=== PATIENT | female | born 1955 | race Hispanic/Latino ===

== ENCOUNTER 2017-06-11 07:19 | Outpatient (CLI) | payer MEDICARE, MEDICAID ==
--- NOTE | 2017-06-11 10:41 | RAD ---
BIPHASIC UPPER GI SMALL BOWEL SERIES: Date: 06/11/17 HISTORY: 62-year-old female with abdominal bloating. FINDINGS: Swallowing was grossly normal. There was unobstructed passage of contrast through the esophagus and i nto the stomach, small bowel loops, and finally the colon. No ulcer, stricture, mass, or diverticulum is seen. No GE reflux was demonstrated during the Valsalva maneuver. There is accelerated passage of contrast from the esophagus into the colon. The small daniella l loops are not abnormally dilated or . Spot fluoroscopic compression demonstrated no abnorm alities, including the terminal ileum. IMPRESSION: Accelerated small bowel transit time. Otherwise unremarkable exam. POS: JOSE MIGUEL
== END 2017-06-11 07:20 | disposition home or self-care (01) ==
LOC: RAD 07:19
PROVIDERS: ATTEND Family Medicine
DX: R14.0 Abdominal distension (gaseous) (principal)
CPT/HCPCS: 74249

== ENCOUNTER 2017-08-30 11:18 | Emergency (ER) | payer MEDICARE, MEDICAID ==
[2017-08-30 11:53] LABS: #Lymphocytes 1.2 thou/uL (1.20-3.40); #Neutrophils 4.5 thou/uL (1.40-6.50); %Eosinophils 0.1 % (0.0-10.0); %Lymphocytes 17.3 % (21.0-51.0); %Monocytes 14.9 % (0.0-10.0); %Neutrophils 67.7 % (42.0-75.0); Hemoglobin 14.3 g/dL (12.0-16.0); Mean Corpuscular HGB CONC 33.7 g/dL (32.0-36.0); Mean Corpuscular Hemoglobin 30.1 pg (27.0-31.0); Mean Corpuscular Volume 89.3 fl (81.0-99.0); Mean Platelet Volume 8.4 fL (7.4-10.4); Platelet Count 165 thou/uL (130-400); Red Blood Cell (RBC) Count 4.76 mill/uL (4.20-5.40); White Blood Cell (WBC) Count 6.7 thou/uL (4.8-10.8)
[2017-08-30 12:11] LABS: ALT (SGPT) 20 U/L (8-55); AST (SGOT) 35 U/L (5-34); Albumin 3.6 g/dL (3.4-4.8); Alkaline Phosphatase 67 U/L (40-150); Anion Gap 15 mmol/L (10-20); BUN (Urea Nitrogen) 17 mg/dL (9.8-20.1); Bilirubin, Total 0.7 mg/dL (0.2-1.2); CK (CPK) 354 U/L (29-168); Calc. Creatinine Clearance 0 mL/min (70-130); Calcium 8.4 mg/dL (7.8-10.44); Carbon Dioxide 21 mmol/L (23-31); Chloride 105 mmol/L (98-107); Estimated GFR-MDRD 59; Globulin 2.9 g/dL (2.4-3.5); Glucose 84 mg/dL (80-115); Potassium 4.2 mmol/L (3.5-5.1); Protein, Total 6.5 g/dL (6.0-8.3); Sodium 137 mmol/L (136-145)
[2017-08-30 12:16] LABS: CKMB 1.5 ng/mL (0-6.6); Troponin I 0.031 ng/mL (< 0.028)
--- NOTE | 2017-08-30 12:17 | RAD ---
CHEST 1 VIEW: Date: 08/30/17 HISTORY: Cough. Dyspnea. COMPARISON: 12/19/16. FINDINGS: Cardiac silhouette is magnified by projection. Pulmonary vasculature is engorged with widespread reti culonodular interstitial prominence. Mediastinum is midline with aortic calcification. IMPRESSION: 1. Widespread reticulonodular interstitial prominence may be related to pulmonary vascular congestio n. Clinical correlation regarding other signs and symptoms of diffuse pneumonitis is required. Please consider close follow-up with upright PA and lateral views of chest when patient can undergo that ex am. 2. Atherosclerosis. POS: JOSE MIGUEL
== END 2017-08-30 14:07 | disposition home or self-care (01) ==
LOC: ERS 11:18
DX: J44.1 Chronic obstructive pulmonary disease with (acute) exacerbation (principal); R19.7 Diarrhea, unspecified; I10 Essential (primary) hypertension; F17.210 Nicotine dependence, cigarettes, uncomplicated; Z79.899 Other long term (current) drug therapy
CPT/HCPCS: 71045; 80053; 82274; 82553; 83880; 84484; 85025; 87081; 87324; 87449; 93005; 94640; 99406; J7620

== ENCOUNTER 2018-01-21 07:36 | Outpatient (CLI) | payer MEDICARE, MEDICAID ==
--- NOTE | 2018-01-21 08:34 | CT ---
CT OF THE CHEST WITHOUT CONTRAST PER LOW DOSE CANCER SCREENING PROTOCOL: Date: 01/21/18 HISTORY: Current smoker with 50 pack/year smoking history. Screening encounter for malignant neoplasm. TECHNIQUE: Multiple contiguous axial images were obtained in a CT of the chest without contrast per low dose can cer screening protocol. Sagittal and coronal reformats were performed. FINDINGS: No pulmonary nodules are identified. No pneumothorax or pleural effusion seen. No focal infiltrates a re seen in the lungs. The heart is normal in size without focal cardiac abnormality. Calcifications seen in the coronary ar teries. No hilar or mediastinal lymphadenopathy are appreciated on this limited noncontrast examinati on. The visualized subdiaphragmatic structures are unremarkable. Chest wall soft tissues are unremarkable . Degenerative changes are seen in the spine. IMPRESSION: Lung-RADS Category 1 - Negative. POS: [facility]
== END 2018-01-21 07:37 | disposition home or self-care (01) ==
LOC: CT 07:36
PROVIDERS: ATTEND Family Medicine
DX: Z12.2 Encounter for screening for malignant neoplasm of respiratory organs (principal); F17.210 Nicotine dependence, cigarettes, uncomplicated
CPT/HCPCS: G0297

== ENCOUNTER 2018-02-15 09:07 | Emergency (ER) | payer MEDICARE, MEDICAID ==
[2018-02-15] MEDS ORDERED: Ketorolac Tromethamine 30 MG/ML VIAL ONE (10:38)
--- NOTE | 2018-02-15 11:06 | RAD ---
PORTABLE UPRIGHT FRONTAL CHEST RADIOGRAPH: Date: 02/15/18 COMPARISON: 08/30/17. HISTORY: Low back pain for 2 weeks. Dyspnea. FINDINGS: Lungs are clear. Heart and mediastinal contours are stable. IMPRESSION: No acute findings. POS: [facility]
[2018-02-15 11:10] LABS: #Basophils 0.1 thou/uL (0.0-0.2); #Eosinphils 0.3 thou/uL (0.0-0.7); #Lymphocytes 2.4 thou/uL (1.20-3.40); #Neutrophils 9.6 thou/uL (1.40-6.50); %Basophils 0.7 % (0.0-1.0); %Lymphocytes 17.8 % (21.0-51.0); %Monocytes 7.3 % (0.0-10.0); %Neutrophils 72.1 % (42.0-75.0); Hemoglobin 16.3 g/dL (12.0-16.0); Mean Corpuscular HGB CONC 33.3 g/dL (32.0-36.0); Mean Corpuscular Hemoglobin 29.1 pg (27.0-31.0); Mean Corpuscular Volume 87.2 fL (78.0-98.0); Mean Platelet Volume 8.5 fL (7.4-10.4); Platelet Count 222 thou/uL (130-400); RBC Distribution Width 13.3 % (11.5-14.5); Red Blood Cell (RBC) Count 5.62 mill/uL (4.20-5.40); White Blood Cell (WBC) Count 13.3 thou/uL (4.8-10.8)
[2018-02-15 11:32] LABS: CKMB 1.1 ng/mL (0-6.6); Troponin I Less than 0.010 ng/mL (< 0.028)
[2018-02-15 11:47] LABS: ALT (SGPT) 19 U/L (8-55); AST (SGOT) 23 U/L (5-34); Albumin 4.2 g/dL (3.4-4.8); Alkaline Phosphatase 100 U/L (40-150); Anion Gap 14 mmol/L (10-20); BUN (Urea Nitrogen) 14 mg/dL (9.8-20.1); Bilirubin, Total 0.9 mg/dL (0.2-1.2); CK (CPK) 61 U/L (29-168); Calc. Creatinine Clearance 0 mL/min (70-130); Calcium 9.7 mg/dL (7.8-10.44); Carbon Dioxide 26 mmol/L (23-31); Chloride 104 mmol/L (98-107); Estimated GFR-MDRD 74; Globulin 3.4 g/dL (2.4-3.5); Glucose 85 mg/dL (80-115); Lipase 23 U/L (8-78); Potassium 4.3 mmol/L (3.5-5.1); Protein, Total 7.6 g/dL (6.0-8.3); Sodium 140 mmol/L (136-145)
[2018-02-15] MEDS ORDERED: ISOVUE-370 76%-LOCM 1 ML ONE (12:15)
--- NOTE | 2018-02-15 12:25 | CT ---
CTA CHEST WITH IV CONTRAST AND 3D POSTPROCESSING CT ABDOMEN WITH IV CONTRAST AND 3D POSTPROCESSING: Date: 02/15/18 HISTORY: Chest pain, concern for aortic aneurysm and dissection. FINDINGS: Vascular calcifications are seen without evidence of aneurysmal dilatation of the thoracoabdominal ao rta. Plaque formation is noted. No intimal flap is seen in the opacified aortic lumen to suggest diss ection. There is moderate stenosis at the origin of the celiac axis, and mild stenosis at the origin of the left renal artery. There is good flow in the celiac axis, SMA, NIC, and the renal arteries. Th ere is scarring in the lung apices. No pleural or pericardial effusions are seen. There are patchy gr ound-glass infiltrates bilaterally. No free air or free fluid is seen in the abdomen. A normal appearing appendix is seen. There is colon ic diverticulosis. A tiny cyst is noted in the left renal cortex. Liver, pancreas, spleen, adrenal gl ands, and right kidney are normal. Degenerative changes are present in the thoracolumbar spine. IMPRESSION: No evidence of thoracoabdominal aortic aneurysm or dissection. POS: [facility]
== END 2018-02-15 12:49 | disposition home or self-care (01) ==
LOC: ERS 09:07
DX: S39.012A Strain of muscle, fascia and tendon of lower back, initial encounter (principal); I10 Essential (primary) hypertension; R07.9 Chest pain, unspecified; J44.9 Chronic obstructive pulmonary disease, unspecified; F17.210 Nicotine dependence, cigarettes, uncomplicated; Z79.899 Other long term (current) drug therapy; X58.XXXA Exposure to other specified factors, initial encounter
CPT/HCPCS: 71045; 71275; 80053; 82553; 83690; 83880; 84484; 85025; 85379; 93005; 96361; 96374; J1885

== ENCOUNTER 2018-02-23 22:43 | Emergency (ER) | payer MEDICARE, MEDICAID ==
[2018-02-23 23:20] LABS: #Basophils 0.1 thou/uL (0.0-0.2); #Eosinphils 0.1 thou/uL (0.0-0.7); #Lymphocytes 2.1 thou/uL (1.20-3.40); #Monocytes 0.7 thou/uL (0.11-0.59); #Neutrophils 8.6 thou/uL (1.40-6.50); %Basophils 0.8 % (0.0-1.0); %Eosinophils 0.9 % (0.0-10.0); %Lymphocytes 17.7 % (21.0-51.0); %Monocytes 6.2 % (0.0-10.0); %Neutrophils 74.3 % (42.0-75.0); Hemoglobin 16.6 g/dL (12.0-16.0); Mean Corpuscular HGB CONC 33.6 g/dL (32.0-36.0); Mean Corpuscular Hemoglobin 28.8 pg (27.0-31.0); Mean Corpuscular Volume 85.7 fL (78.0-98.0); Mean Platelet Volume 8.4 fL (7.4-10.4); Platelet Count 240 thou/uL (130-400); Red Blood Cell (RBC) Count 5.79 mill/uL (4.20-5.40); White Blood Cell (WBC) Count 11.6 thou/uL (4.8-10.8)
[2018-02-23 23:27] LABS: Bilirubin Small (Negative); Blood, Urine Negative (Negative); Clarity CLOUDY (Clear); Glucose, Urine (Dipstick) Negative (Negative); Leukocyte Trace (Negative); Nitrite Negative (Negative); Protein, Urine (Dipstick) 100 mg/dL (Neg-Trace); pH, Urine 5.5 (5.0-9.0)
[2018-02-23 23:30] LABS: Bacteria/HPF None Seen HPF (None Seen); Squamous Epithelial 21-50 HPF (0-3); Yeast-AUWi Flag 21.8 (0-25.0)
[2018-02-23 23:40] LABS: ALT (SGPT) 20 U/L (8-55); AST (SGOT) 28 U/L (5-34); Albumin 4.3 g/dL (3.4-4.8); Alkaline Phosphatase 100 U/L (40-150); Anion Gap 14 mmol/L (10-20); BUN (Urea Nitrogen) 18 mg/dL (9.8-20.1); Bilirubin, Total 0.6 mg/dL (0.2-1.2); Calc. Creatinine Clearance 0 mL/min (70-130); Calcium 9.4 mg/dL (7.8-10.44); Carbon Dioxide 24 mmol/L (23-31); Chloride 103 mmol/L (98-107); Estimated GFR-MDRD 44; Globulin 3.1 g/dL (2.4-3.5); Glucose 129 mg/dL (80-115); Lipase 43 U/L (8-78); Potassium 3.9 mmol/L (3.5-5.1); Protein, Total 7.4 g/dL (6.0-8.3); Sodium 137 mmol/L (136-145)
[2018-02-23 23:55] LABS: Crystals/HPF 3+ CA OXALATE HPF (Negative); RBC/HPF None Seen HPF (0-3); Renal Epithelial None Seen HPF (0-3); Transitional Epithelial NONE SEEN HPF (0-3)
[2018-02-24] MEDS ORDERED: Ketorolac Tromethamine 30 MG/ML VIAL ONE (02:32)
[2018-02-24] MEDS ORDERED: Ondansetron ODT 8 MG TAB ONE (02:32)
[2018-02-24] MEDS ORDERED: Fentanyl 100 MCG/2 ML VIAL ONE (04:10)
[2018-02-24] MEDS ORDERED: Lidocaine Viscous Sol 2% 15 ml UD Cup ONE (04:10)
[2018-02-24] MEDS ORDERED: Mag-Al 1200 mg/1200 mg/30 ML UDCUP ONE (04:10)
== END 2018-02-24 05:03 | disposition home or self-care (01) ==
LOC: ERS 22:43
DX: K29.70 Gastritis, unspecified, without bleeding (principal); Z71.6 Tobacco abuse counseling; J44.9 Chronic obstructive pulmonary disease, unspecified; I10 Essential (primary) hypertension; J45.909 Unspecified asthma, uncomplicated; F17.210 Nicotine dependence, cigarettes, uncomplicated; Z79.899 Other long term (current) drug therapy
CPT/HCPCS: 36415; 80053; 81003; 81015; 83690; 85025; 93005; 96361; 96372; 96374; 96375; 99406; J1885; J3010

== ENCOUNTER 2018-03-27 12:55 | Outpatient (CLI) | payer MEDICARE, MEDICAID | END 2018-03-27 12:56 | disposition home or self-care (01) | LOC: BICRAD 12:55 | PROVIDERS: ATTEND Nurse Practitioner Family | DX: Z91.81 History of falling (principal) | CPT/HCPCS: 72220 ==

== ENCOUNTER 2018-06-03 14:02 | Outpatient (CLI) | payer MEDICARE, MEDICAID | END 2018-06-03 14:03 | disposition home or self-care (01) | LOC: BICMAMMO 14:02 | PROVIDERS: ATTEND Nurse Practitioner Family | DX: Z12.31 Encounter for screening mammogram for malignant neoplasm of breast (principal) | CPT/HCPCS: 77063; 77067 ==

== ENCOUNTER 2018-08-27 13:30 | Emergency (ER) | payer MEDICARE, MEDICAID ==
--- NOTE | 2018-08-27 15:28 | RAD ---
PORTABLE CHEST ONE VIEW: Date: 08-27-18 Time: 2:13 p.m. History: Cough. FINDINGS: Comparison is made with exam of 02-15-18. The heart size is prominent. The lungs are expanded without focal areas of consolidation, pneumothora x, jerald pulmonary edema or pleural effusions. IMPRESSION: No acute process. POS: OFF
[2018-08-27 15:31] LABS: Bilirubin Negative (Negative); Blood, Urine Negative (Negative); Clarity CLEAR (Clear); Glucose, Urine (Dipstick) Negative (Negative); Leukocyte Negative (Negative); Nitrite Negative (Negative); Protein, Urine (Dipstick) Negative (Neg-Trace); Specific Gravity, Urine 1.019 (1.002-1.036); pH, Urine 6.5 (5.0-9.0)
[2018-08-27 15:31] LABS: #Basophils 0.1 thou/uL (0.0-0.2); #Eosinphils 0.3 thou/uL (0.0-0.7); #Lymphocytes 2.4 thou/uL (1.20-3.40); #Monocytes 0.9 thou/uL (0.11-0.59); #Neutrophils 7.4 thou/uL (1.40-6.50); %Basophils 0.7 % (0.0-1.0); %Eosinophils 2.9 % (0.0-10.0); %Lymphocytes 21.3 % (21.0-51.0); %Monocytes 7.9 % (0.0-10.0); %Neutrophils 67.1 % (42.0-75.0); Hemoglobin 15.1 g/dL (12.0-16.0); Mean Corpuscular HGB CONC 31.9 g/dL (32.0-36.0); Mean Corpuscular Hemoglobin 28.6 pg (27.0-31.0); Mean Corpuscular Volume 89.5 fL (78.0-98.0); Mean Platelet Volume 8.2 fL (7.4-10.4); Platelet Count 254 thou/uL (130-400); RBC Distribution Width 12.9 % (11.5-14.5); Red Blood Cell (RBC) Count 5.27 mill/uL (4.20-5.40)
[2018-08-27 15:52] LABS: ALT (SGPT) 18 U/L (8-55); AST (SGOT) 24 U/L (5-34); Alkaline Phosphatase 119 U/L (40-150); Anion Gap 16 mmol/L (10-20); BUN (Urea Nitrogen) 16 mg/dL (9.8-20.1); Bilirubin, Total 0.5 mg/dL (0.2-1.2); CK (CPK) 65 U/L (29-168); Calc. Creatinine Clearance 0 mL/min (70-130); Calcium 9.5 mg/dL (7.8-10.44); Carbon Dioxide 23 mmol/L (23-31); Chloride 107 mmol/L (98-107); Estimated GFR-MDRD 66; Globulin 2.6 g/dL (2.4-3.5); Glucose 114 mg/dL (80-115); Lipase 24 U/L (8-78); Potassium 4.3 mmol/L (3.5-5.1); Protein, Total 6.6 g/dL (6.0-8.3); Sodium 142 mmol/L (136-145)
== END 2018-08-27 16:45 | disposition home or self-care (01) ==
LOC: ERS 13:30
DX: M54.5 Low back pain (principal); R07.9 Chest pain, unspecified; R06.00 Dyspnea, unspecified; J44.9 Chronic obstructive pulmonary disease, unspecified; I10 Essential (primary) hypertension; F17.210 Nicotine dependence, cigarettes, uncomplicated; Z79.51 Long term (current) use of inhaled steroids; Z79.891 Long term (current) use of opiate analgesic; Z79.899 Other long term (current) drug therapy
CPT/HCPCS: 36415; 71045; 80053; 81003; 82550; 83690; 83880; 84484; 85025; 93005

== ENCOUNTER 2018-12-18 05:52 | Emergency (ER) | payer MEDICARE, MEDICAID ==
--- NOTE | 2018-12-18 07:28 | RAD ---
EXAM: Chest 2 views: HISTORY: Dyspnea COMPARISON: 12/19/2016 FINDINGS: There is a normal-sized cardiomediastinal silhouette. There is no evidence of consolidation, mass, or pleural effusion. Degenerative changes are seen in the spine. IMPRESSION: No evidence of acute cardiopulmonary disease
== END 2018-12-18 06:52 | disposition home or self-care (01) ==
LOC: ERS 05:52
DX: J44.1 Chronic obstructive pulmonary disease with (acute) exacerbation (principal); J02.9 Acute pharyngitis, unspecified; I10 Essential (primary) hypertension; F17.210 Nicotine dependence, cigarettes, uncomplicated; Z79.51 Long term (current) use of inhaled steroids; Z79.899 Other long term (current) drug therapy
CPT/HCPCS: 71046

== ENCOUNTER 2019-04-03 10:02 | Inpatient (IN) | payer MEDICARE, MEDICAID ==
--- NOTE | 2019-04-03 10:40 | RAD ---
XR Chest Pa Lat STANDARD HISTORY: Dyspnea, COPD COMPARISON: 12/18/2018 FINDINGS: The heart size is normal. The lungs are well expanded without focal areas of consolidation, pneumothorax or pleural effusions. There are degenerative changes in the spine. IMPRESSION: No radiographic evidence of acute cardiopulmonary process.
[2019-04-03 12:22] LABS: #Basophils 0.1 thou/uL (0.0-0.2); #Eosinphils 0.2 thou/uL (0.0-0.7); #Lymphocytes 2.4 thou/uL (1.20-3.40); #Monocytes 0.7 thou/uL (0.11-0.59); #Neutrophils 6.9 thou/uL (1.40-6.50); %Basophils 0.8 % (0.0-1.0); %Eosinophils 2.2 % (0.0-10.0); %Lymphocytes 23.4 % (21.0-51.0); %Monocytes 6.3 % (0.0-10.0); %Neutrophils 67.2 % (42.0-75.0); Hemoglobin 15.9 g/dL (12.0-16.0); Mean Corpuscular HGB CONC 33.5 g/dL (32.0-36.0); Mean Corpuscular Hemoglobin 28.9 pg (27.0-31.0); Mean Corpuscular Volume 86.3 fL (78.0-98.0); Mean Platelet Volume 8.4 fL (7.4-10.4); Platelet Count 233 thou/uL (130-400); RBC Distribution Width 12.6 % (11.5-14.5); Red Blood Cell (RBC) Count 5.49 mill/uL (4.20-5.40); White Blood Cell (WBC) Count 10.3 thou/uL (4.8-10.8)
[2019-04-03 12:42] LABS: ALT (SGPT) 28 U/L (8-55); AST (SGOT) 38 U/L (5-34); Albumin 4.3 g/dL (3.4-4.8); Alkaline Phosphatase 95 U/L (40-150); Anion Gap 13 mmol/L (10-20); BUN (Urea Nitrogen) 15 mg/dL (9.8-20.1); CK (CPK) 48 U/L (29-168); Calc. Creatinine Clearance 0 mL/min (70-130); Calcium 9.6 mg/dL (7.8-10.44); Carbon Dioxide 25 mmol/L (23-31); Chloride 104 mmol/L (98-107); Estimated GFR-MDRD 74; Globulin 2.4 g/dL (2.4-3.5); Glucose 107 mg/dL (80-115); Potassium 4.5 mmol/L (3.5-5.1); Protein, Total 6.7 g/dL (6.0-8.3); Sodium 137 mmol/L (136-145)
[2019-04-03 14:18] LABS: Bilirubin Negative (Negative); Blood, Urine Negative (Negative); Clarity Clear (Clear); Glucose, Urine (Dipstick) Normal (Negative); Leukocyte Negative Leu/uL (Negative); Nitrite Negative (Negative); Protein, Urine (Dipstick) Negative (Neg-Trace); Urobilinogen Normal mg/dL (Less than 2)
--- NOTE | 2019-04-03 14:31 | CT ---
CT arteriogram chest with IV contrast and 3-D imaging HISTORY: Chest pain. Productive cough. COMPARISON: 11/28/2015. FINDINGS: There is good contrast opacification pulmonary arteries and thoracic aorta with bovine orig ins of the great vessels at the aortic arch. Arterial calcification and prominent noncalcified thrombus, most pronounced within the descending thoracic aorta, resulting in significant stenosis mehul r the level of the diaphragm. Areas of chronic scarring throughout each lung and tiny nonspecific subpleural nodules are stable. No pleural fluid or pneumothorax. Nonspecific lymph nodes throughout the mediastinum. IMPRESSION: No CT evidence of pulmonary embolus. Severe atherosclerosis. Chronic-type findings are stable.
[2019-04-03] MEDS ORDERED: methylPREDNISolone Sod Succ/PF 125 MG/2 ML VIAL ONE (15:35)
[2019-04-03] MEDS ORDERED: Magnesium 2 GM/50 ML BAG (IN WATER) ONE (16:12)
[2019-04-03] MEDS ORDERED: HYDROcodone/Acetaminophen 5/325 mg Tablet PO PRN ×2 (17:44)
[2019-04-03 19:58] VITALS: BMI 47.2
[2019-04-03] MEDS: methylPREDNISolone Sod Succ 40 MG VIAL IVP SCH (21:46)
[2019-04-03] MEDS: Famotidine 20 MG TAB PO SCH (21:48)
[2019-04-03] MEDS: Nicotine 14 MG PATCH TD SCH (21:50)
[2019-04-03] MEDS: Senokot S 8.6-50 MG TAB PO SCH (21:51)
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
[2019-04-04] MEDS: methylPREDNISolone Sod Succ 40 MG VIAL IVP SCH ×2 (00:50→06:37)
[2019-04-04 04:58] LABS: #Lymphocytes 0.8 thou/uL (1.20-3.40); #Monocytes 0.1 thou/uL (0.11-0.59); #Neutrophils 9.6 thou/uL (1.40-6.50); %Basophils 0.1 % (0.0-1.0); %Eosinophils 0.1 % (0.0-10.0); %Lymphocytes 7.5 % (21.0-51.0); %Monocytes 1.4 % (0.0-10.0); Hemoglobin 15.4 g/dL (12.0-16.0); Mean Corpuscular HGB CONC 32.9 g/dL (32.0-36.0); Mean Corpuscular Hemoglobin 29.2 pg (27.0-31.0); Mean Corpuscular Volume 88.8 fL (78.0-98.0); Mean Platelet Volume 8.4 fL (7.4-10.4); Platelet Count 235 thou/uL (130-400); RBC Distribution Width 12.6 % (11.5-14.5); Red Blood Cell (RBC) Count 5.27 mill/uL (4.20-5.40); White Blood Cell (WBC) Count 10.6 thou/uL (4.8-10.8)
[2019-04-04 05:14] LABS: Anion Gap 21 mmol/L (10-20); BUN (Urea Nitrogen) 21 mg/dL (9.8-20.1); Calc. Creatinine Clearance 86 mL/min (70-130); Calcium 9.2 mg/dL (7.8-10.44); Carbon Dioxide 14 mmol/L (23-31); Chloride 99 mmol/L (98-107); Estimated GFR-MDRD 50; Glucose 331 mg/dL (80-115); Magnesium 2.3 mg/dL (1.6-2.6); Potassium 3.7 mmol/L (3.5-5.1); Sodium 130 mmol/L (136-145)
[2019-04-04] MEDS: Famotidine 20 MG TAB PO SCH ×2 (07:40→21:59)
[2019-04-04] MEDS: Enoxaparin Sodium 40 MG/0.4 ML SYRINGE SC SCH (07:40)
[2019-04-04] MEDS: Senokot S 8.6-50 MG TAB PO SCH ×2 (07:40→21:58)
[2019-04-04] MEDS ORDERED: cloNIDine 0.1 MG TAB PO PRN (08:41)
[2019-04-04] MEDS ORDERED: predniSONE 20 MG TAB PO SCH (11:00)
--- NOTE | 2019-04-04 17:00 | PDOC.HOSPP ---
- Subjective Subjective: Still SOB. Does not feel like she has any improvement from the time of admission. - Objective Vital Signs & Weight: Vital Signs (12 hours) Temp Pulse Pulse Pulse Resp BP BP 04/04/19 15:44 98.1 F 107 H 16 04/04/19 11:40 97.3 F L 115 H 22 H 148/70 H 04/04/19 10:35 120 H 127 H 136/66 04/04/19 07:37 97.4 F L 116 H 24 H BP Pulse Ox Pulse Ox Pulse Ox 04/04/19 15:44 131/66 95 04/04/19 11:40 97 04/04/19 10:35 97 95 04/04/19 07:37 198/76 H 97 Weight Admit Weight 233 lb 11.2 oz Weight 233 lb 11.2 oz I&O: 04/03/19 04/04/19 04/05/19 06:59 06:59 06:59 Intake Total 650 Output Total 700 Balance -50 Result Diagrams: 04/04/19 04:41 04/04/19 04:41 Hospitalist ROS - Medication Medications: Active Medications Generic Name Dose Route Start Last Admin Trade Name Freq PRN Reason Stop Dose Admin Hydrocodone Bitart/Acetaminophen 1 tab 04/03/19 17:44 04/04/19 13:37 [place] 5/325 PO 1 tab Q4H PRN Administration Moderate Pain (4-6) Hydrocodone Bitart/Acetaminophen 2 tab 04/03/19 17:44 04/03/19 21:48 [place] 5/325 PO 2 tab Q4H PRN Administration Severe Pain (7-10) Albuterol/Ipratropium 3 ml 04/04/19 13:00 04/04/19 12:47 Duoneb NEB Not Given [id number] ANYA Enoxaparin Sodium 40 mg 04/04/19 09:00 04/04/19 07:40 Lovenox SC 40 mg 0900 ANYA Administration Famotidine 20 mg 04/03/19 21:00 04/04/19 07:40 Pepcid PO 20 mg BID ANYA Administration Nicotine 14 mg 04/03/19 21:00 04/03/19 21:50 Nicoderm Patch TD 14 mg 2100 ANYA Administration Senna/Docusate Sodium 2 tab 04/03/19 21:00 04/04/19 07:40 Senokot S PO Not Given BID ANYA Sodium Chloride 10 ml 04/03/19 17:44 04/04/19 06:38 Flush - Normal Saline IVF 10 ml PRN PRN Administration Saline Flush - Exam General Appearance: NAD Neck: supple, symmetric, no JVD, no thyromegaly, no lymphadenopathy, no carotid bruit Heart: RRR, no murmur, no gallops, no rubs, normal peripheral pulses Respiratory - other findings: Modest scattered wheezes and rales. Diminished. Gastrointestinal: soft, non-tender, non-distended, normal bowel sounds, no palpable masses, no hepatomegaly, no splenomegaly, no bruit Extremities: 1+ LE edema (Left LE) Musculoskeletal: normal tone, normal strength, no muscle wasting Psychiatric: normal affect Hosp A/P (1) Tachycardia Code(s): R00.0 - TACHYCARDIA, UNSPECIFIED Status: Acute (2) COPD exacerbation Code(s): J44.1 - CHRONIC OBSTRUCTIVE PULMONARY DISEASE W (ACUTE) EXACERBATION Status: Acute (3) Leg swelling Code(s): M79.89 - OTHER SPECIFIED SOFT TISSUE DISORDERS Status: Acute (4) HTN (hypertension) Code(s): I10 - ESSENTIAL (PRIMARY) HYPERTENSION Status: Chronic Qualifiers: (5) Tobacco abuse Code(s): Z72.0 - TOBACCO USE Status: Chronic (6) Morbid obesity Code(s): E66.01 - MORBID (SEVERE) OBESITY DUE TO EXCESS CALORIES Status: Acute (7) Atherosclerosis of aorta Code(s): I70.0 - ATHEROSCLEROSIS OF AORTA Status: Acute - Plan Has persistent tachycardia. Unclear if it is related to the nebs or the COPD. Suspect COPD as it has been consistent. Will change nebs to q 6 hours. Change steroids to po. FLP in am. Start a statin. Recheck BUN and Creat in the morning. Slightly up today. Discussed the findings of the severe atherosclerotic disease of the distal aorta. Strongly admonished the patient to stop smoking completely.
[2019-04-04] MEDS ORDERED: Atorvastatin Calcium 10 MG TAB PO SCH (21:00)
[2019-04-04] MEDS: Nicotine 14 MG PATCH TD SCH (21:59)
[2019-04-05 06:48] LABS: Anion Gap 13 mmol/L (10-20); BUN (Urea Nitrogen) 28 mg/dL (9.8-20.1); Calc. Creatinine Clearance 100 mL/min (70-130); Calcium 9.5 mg/dL (7.8-10.44); Carbon Dioxide 26 mmol/L (23-31); Cardiac Risk 4.2 (Less than 4.5); Chloride 100 mmol/L (98-107); Cholesterol 152 mg/dl (< 200 Desired); Estimated GFR-MDRD 59; Glucose 177 mg/dL (80-115); HDL Cholesterol 36 mg/dL (>60 Neg Risk); LDL Cholesterol, Calculated 91 mg/dL; Potassium 4.5 mmol/L (3.5-5.1); Sodium 134 mmol/L (136-145); Triglycerides 127 mg/dL (Less than 150)
[2019-04-05] MEDS ORDERED: predniSONE 20 MG TAB PO SCH (08:00)
[2019-04-05] MEDS: Senokot S 8.6-50 MG TAB PO SCH (08:26)
[2019-04-05] MEDS: Enoxaparin Sodium 40 MG/0.4 ML SYRINGE SC SCH (08:26)
[2019-04-05] MEDS: Famotidine 20 MG TAB PO SCH (08:26)
--- NOTE | 2019-04-05 11:56 | DIS ---
DATE OF ADMISSION: 04/04/2019 DATE OF DISCHARGE: 04/05/2019 ADMITTING DIAGNOSES: Dyspnea, chronic obstructive pulmonary disease exacerbation, hypertension, and shortness of breath upon ambulation. DISCHARGE DIAGNOSES: 1. Dyspnea, resolved. 2. Chronic obstructive pulmonary disease exacerbation, stable. 3. Hypertension, stable. 4. Obesity. HOSPITAL COURSE: This is a 63-year-old female, who was admitted to Internal Medicine Team due to shortness of breath and COPD exacerbation, who was started on steroids with significant improvement in her condition. The patient at point in time of discharge was stable. Denied having any nausea, vomiting, diarrhea, constipation, chest pain, fevers, or shortness of breath. Was advised to follow up with her outpatient beauty specialist within 1 to 2 weeks for further management and care as well as her PCP within 1 to 2 weeks. The patient's condition is stable. The patient was given Medrol Dosepak at point in time of discharge. Also advised to pursue some weight loss. The patient at point in time was stable. Case and plan discussed with the patient, , and family at length. They understood and agreed with this plan. DISPOSITION: Home. MEDICATIONS: See MAR. ACTIVITY: As tolerated with assistance as needed. DIET: Low-fat, low-calorie, high-fiber diet. CONDITION: Stable. PROGNOSIS: Good. Once again, case and plan discussed with patient at length. They understood and agreed with this plan. Job ID: [id number]
[2019-04-05 11:57] VITALS: BP 139/62; TEMP 98.6
== END 2019-04-05 14:32 | disposition home or self-care (01) | DRG 191 ==
LOC: ERS 10:02 → 2SW 16:10 → OBSVTOIN 04-04 10:48
PROVIDERS: ADMIT Internal Medicine; ATTEND Internal Medicine
DX: J44.1 Chronic obstructive pulmonary disease with (acute) exacerbation (principal); Z68.42 Body mass index [BMI] 45.0-49.9, adult; F17.210 Nicotine dependence, cigarettes, uncomplicated; I10 Essential (primary) hypertension; E66.01 Morbid (severe) obesity due to excess calories; I70.0 Atherosclerosis of aorta; Z90.49 Acquired absence of other specified parts of digestive tract; Z79.51 Long term (current) use of inhaled steroids
CPT/HCPCS: 36415; 71046; 71275; 80048; 80053; 80061; 81003; 82550; 83605; 83735; 83880; 84484; 85025; 87040; 87324; 87449; 93005; 93306; 94640; 96365; 96366; 96375; J1650; J2920; J2930; J3475; J7512; J7620

== ENCOUNTER 2019-09-04 15:45 | Outpatient (CLI) | payer MEDICARE, MEDICAID ==
--- NOTE | 2019-09-04 16:49 | RAD ---
EXAM: LUMBAR SPINE TWO VIEWS: 09/04/19 HISTORY: Lumbago with sciatica. Right sided pain. COMPARISON: 09/16/09. FINDINGS: Grade I/II spondylolisthesis of L5 on S1. Multilevel disc osteophytosis. Significant facet arthrosis of the lower lumbar spine. Appearance does not appear to be significantly changed from prior exam. IMPRESSION: Grade I/II spondylolisthesis of L5 on S1. Generalized spondylosis. No acute fracture or dislocation. Little change from prior exam. POS: OFF
== END 2019-09-04 15:46 | disposition home or self-care (01) ==
LOC: BICRAD 15:45
PROVIDERS: ATTEND Family Medicine
DX: M54.41 Lumbago with sciatica, right side (principal); M43.17 Spondylolisthesis, lumbosacral region; M47.816 Spondylosis without myelopathy or radiculopathy, lumbar region
CPT/HCPCS: 72100

== ENCOUNTER 2019-10-03 11:19 | Outpatient (CLI) | payer MEDICARE, MEDICAID ==
--- NOTE | 2019-10-03 13:23 | MMO ---
Bilateral MAMMO Bilat Screen DDI+ANTOINE. CLINICAL HISTORY: Patient is 64 years old and is seen for screening. The patient has no family history of breast cancer. The patient has no personal history of cancer. VIEWS: The views performed were: bilateral craniocaudal; bilateral craniocaudal with tomosynthesis; bilateral mediolateral oblique; and bilateral mediolateral oblique with tomosynthesis. FILMS COMPARED: The present examination has been compared to prior imaging studies performed at [facility] on 01/19/2009, 05/31/2017 and 06/03/2018. This study has been interpreted with the assistance of computer-aided detection. MAMMOGRAM FINDINGS: The breasts are almost entirely fat. Benign calcifications are noted bilaterally. There are no suspicious masses, suspicious calcifications, or new areas of architectural distortion. IMPRESSION: THERE IS NO MAMMOGRAPHIC EVIDENCE OF MALIGNANCY. A ROUTINE FOLLOW-UP MAMMOGRAM IN 1 YEAR IS RECOMMENDED. THE RESULTS OF THIS EXAM WERE SENT TO THE PATIENT. ACR BI-RADS Category 2 - Benign finding MAMMOGRAPHY NOTE: 1. A negative mammogram report should not delay a biopsy if a dominant of clinically suspicious mass is present. 2. Approximately 10% to 15% of breast cancers are not detected by mammography. 3. Adenosis and dense breasts may obscure an underlying neoplasm. Reported by: VIVI MARIA MD Electonically Signed: [id number]
== END 2019-10-03 11:20 | disposition home or self-care (01) ==
LOC: BICMAMMO 11:19
PROVIDERS: ATTEND Family Medicine
DX: Z12.31 Encounter for screening mammogram for malignant neoplasm of breast (principal)
CPT/HCPCS: 77063; 77067

== ENCOUNTER 2019-10-07 08:00 | Outpatient (CLI) | payer MEDICARE, MEDICAID ==
--- NOTE | 2019-10-07 09:22 | BD ---
DEXA BONE DENSITY STUDY: Date: 10/07/2019 HISTORY: Menopausal disorder. COMPARISON: None. FINDINGS: Lumbar Spine: BMD (g/cm2) L1 0.892 T-Score: -0.9 Z-Score: 0.7 L2 0.920 T-Score: -1.0 Z-Score: 0.8 L3 0.980 T-Score: -0.9 Z-Score: 0.9 L4 1.138 T-Score: 0.7 Z-Score: 2.6 L1-L4 0.976 T-Score: -0.6 Z-Score: 1.1 Left Femoral Neck: 0.700 T-Score: -1.3 Z-Score: 0.2 Total Femur: 1.081 T-Score: 1.1 Z-Score: 2.4 IMPRESSION: 1. Based on WHO criteria, the patient's bone mineral density is considered osteopenic. The patient i s at moderate risk for fracture. 2. The FRAX WHO fracture risk assessment tool estimates 10 year fracture risk for this patient for m ajor osteoporotic fracture at 11% and for hip fracture at 1.1%. POS: OFF
== END 2019-10-07 08:01 | disposition home or self-care (01) ==
LOC: BICMAMMO 08:00
PROVIDERS: ATTEND Family Medicine
DX: N95.9 Unspecified menopausal and perimenopausal disorder (principal); M85.852 Other specified disorders of bone density and structure, left thigh
CPT/HCPCS: 77080

== ENCOUNTER 2019-10-13 06:52 | Outpatient (CLI) | payer MEDICARE, MEDICAID ==
[2019-10-13 13:22] LABS: #Basophils 0.1 thou/uL (0.0-0.2); #Lymphocytes 0.9 thou/uL (1.20-3.40); #Monocytes 0.3 thou/uL (0.11-0.59); #Neutrophils 11.7 thou/uL (1.40-6.50); %Basophils 0.8 % (0.0-1.0); %Eosinophils 0.1 % (0.0-10.0); %Lymphocytes 6.8 % (21.0-51.0); %Neutrophils 90.2 % (42.0-75.0); Hemoglobin 15.2 g/dL (12.0-16.0); Mean Corpuscular HGB CONC 33.2 g/dL (32.0-36.0); Mean Corpuscular Hemoglobin 28.9 pg (27.0-31.0); Mean Corpuscular Volume 87.3 fL (78.0-98.0); Mean Platelet Volume 8.6 fL (7.4-10.4); Platelet Count 234 thou/uL (130-400); RBC Distribution Width 12.8 % (11.5-14.5); Red Blood Cell (RBC) Count 5.26 mill/uL (4.20-5.40)
[2019-10-13 13:49] LABS: Anion Gap 15 mmol/L (10-20); BUN (Urea Nitrogen) 15 mg/dL (9.8-20.1); Calc. Creatinine Clearance 0 mL/min (70-130); Calcium 8.6 mg/dL (7.8-10.44); Carbon Dioxide 22 mmol/L (23-31); Chloride 106 mmol/L (98-107); Estimated GFR-MDRD 65; Glucose 205 mg/dL (80-115); Potassium 4.2 mmol/L (3.5-5.1); Sodium 139 mmol/L (136-145)
== END 2019-10-13 06:53 | disposition home or self-care (01) ==
LOC: LABBT 06:52
PROVIDERS: ATTEND Orthopaedic Surgery
DX: Z01.812 Encounter for preprocedural laboratory examination (principal); G56.02 Carpal tunnel syndrome, left upper limb; G56.22 Lesion of ulnar nerve, left upper limb
CPT/HCPCS: 80048; 85025; 93005; 93010

== ENCOUNTER → 2019-10-15 | Day surgery (SDC) | payer MEDICARE, MEDICAID ==
[2019-10-13 13:25] VITALS: BMI 50.2
[~2019-10-15] MED LIST: Fentanyl 100 MCG/2 ML VIAL ONE; Glycopyrrolate 0.2 MG/ML 5 ML SYRINGE ONE; Labetalol HCl 100 MG/20 ML VIAL ONE; Lidocaine 1% (PF) 30 ML VIAL ONE; Lidocaine 1% PF 5 ML VIAL ONE; Ondansetron PF 4 MG/2 ML Vial ONE; PROPOFOL 200 MG/20 ML VIAL ONE; Rocuronium Bromide 10 MG/ML (10ML VIAL) ONE; Succinylcholine Chloride 20 MG/ML 10 ml SYRINGE FS ONE
--- NOTE | 2019-10-18 09:16 | OP ---
DATE OF PROCEDURE: 10/15/2019 PREOPERATIVE DIAGNOSES: 1. Recurrent left carpal tunnel syndrome. 2. Left cubital tunnel syndrome. PROCEDURES PERFORMED: 1. Left open carpal tunnel release. 2. Left open cubital tunnel release with ulnar nerve transposition. 3. Placement of long-arm splint, left upper extremity. VIDEO EDITOR: Morgan Hill PA-C ESTIMATED BLOOD LOSS: Minimal. COMPLICATIONS: None. DISPOSITION: She did go to recovery room in stable condition. ANESTHESIA: She had a general anesthetic. INDICATIONS: A 64-year-old female, who had a previous carpal tunnel release performed. A recent EMG/NCV has significant cubital and carpal tunnel syndromes. At this time, she opted for surgery. DESCRIPTION OF PROCEDURE: After all appropriate consent forms were explained and signed, she was taken to the operating room and at this time was given general anesthetic. Once the level of anesthesia was appropriate, the left upper extremity had a tourniquet placed on it. The limb was then prepped and draped in standard surgical fashion. At this time, our incision for carpal tunnel release was drawn out. This went to proximal to the crease in a zigzag fashion. This was infiltrated with plain lidocaine. The limb was then exsanguinated. Tourniquet was taken up to 250 mmHg. Under loupe magnification, a 15 blade was used to make the incision. Bipolar cautery was used to coagulate any brisk venous bleeding. We then very slowly and down through the previous incision of scar tissue to get to the carpal tunnel. Using a hemostat to protect the underlying nerve, a combination of scissors and a 15 blade was used to transect the transverse carpal ligament in its entirety and to reopen the wound. There was a copious amount of scar tissue distally, from which the nerve was freed up and after this was done, the nerve appeared to be intact. There were no masses noted. The underlying flexor tendons were in good condition. At this time, a moist Ray-Tania sponge was placed into the wound and the tourniquet was let down. Hemostasis was achieved with the bipolar. We thoroughly irrigated the wound. We then closed the wound with multiple interrupted nylon sutures. A bulky sterile hand dressing was applied. At this time, we went to the elbow. The incision was drawn out. The arm was re-exsanguinated and tourniquet was taken back up to 250 mmHg. A 15 blade was used to incise down through skin. The Bovie was used to coagulate any brisk venous bleeding as well as the bipolar. At this time, we then freed up the flexor origin from any tissue. We then used the scissors to cut into the cubital tunnel and keeping the nerve in direct visualization. We were able to free up the ulnar nerve in its entirety from the brachium all the way down to the first motor branch. At this time again, a moist Ray-Tania sponge was placed into the wound and the tourniquet was let down again. Bipolar cautery was used to coagulate any brisk venous bleeding. We thoroughly irrigated and dried the wounds. We then used deep Vicryl sutures to close our cubital tunnels so the nerve cannot rollback inside. 2-0 Vicryl and nylon scissors were then used to close the skin incision. Bulky sterile dressing was then applied here and a long-arm posterior splint was then placed onto the left upper extremity. Once it was dried a sling was applied. The patient was then awakened and taken to the recovery room in stable condition. All counts were correct at the end of the case and she did receive preop antibiotics. An examination was performed on the recovery room once the patient had awakened and both the median and ulnar nerves were functioning in the recovery room. Job ID: [id number]
== END ==
LOC: SDC 08:11
PROVIDERS: ATTEND Orthopaedic Surgery
PROC: 01N40ZZ Release Ulnar Nerve, Open Approach (ICD-10-PCS; principal; 2019-10-15)
PROC: 01N50ZZ Release Median Nerve, Open Approach (ICD-10-PCS; 2019-10-15)
DX: G56.03 Carpal tunnel syndrome, bilateral upper limbs (principal); G56.22 Lesion of ulnar nerve, left upper limb; I10 Essential (primary) hypertension; J44.9 Chronic obstructive pulmonary disease, unspecified; K21.9 Gastro-esophageal reflux disease without esophagitis; F17.210 Nicotine dependence, cigarettes, uncomplicated; E66.9 Obesity, unspecified; Z68.43 Body mass index [BMI] 50.0-59.9, adult; Z79.51 Long term (current) use of inhaled steroids; Z79.899 Other long term (current) drug therapy; Z96.652 Presence of left artificial knee joint; Z98.890 Other specified postprocedural states
CPT/HCPCS: J0690; J2001; J2405; J2704; J3010

== ENCOUNTER 2020-02-09 05:24 | Outpatient (CLI) | payer MEDICARE, MEDICAID, OTHER ==
[2020-02-10 13:10] LABS: SARS-CoV-2 MS2 Positive; SARS-CoV-2 N Gene Negative; SARS-CoV-2 S Gene Negative; SARS-CoV-2 orf1ab Negative
== END 2020-02-09 05:25 | disposition home or self-care (01) ==
LOC: LABBT 05:24
PROVIDERS: ATTEND Internal Medicine
DX: Z01.812 Encounter for preprocedural laboratory examination (principal); Z11.59 Encounter for screening for other viral diseases; Z12.11 Encounter for screening for malignant neoplasm of colon
CPT/HCPCS: 87635; U0003

== ENCOUNTER 2020-02-12 05:52 | Day surgery (SDC) | payer MEDICARE, MEDICAID ==
[2020-02-04 11:23] VITALS: BMI 46.8
[2020-02-12] MEDS ORDERED: GoLYTELY 4,000 ml Bottle PO SCH (08:30)
[2020-02-12] MEDS ORDERED: PROPOFOL 200 MG/20 ML VIAL ONE (11:28)
[2020-02-12] MEDS ORDERED: Lidocaine 1% PF 5 ML VIAL ONE (11:28)
--- NOTE | 2020-02-12 13:29 | OP ---
DATE OF PROCEDURE: 02/12/2020 PROCEDURE PERFORMED: Colonoscopy with polypectomy. INDICATIONS FOR PROCEDURE: Screening for malignant neoplasm of the colon, no stated family history of GI malignancy. DESCRIPTION OF PROCEDURE: After the risks and benefits of the procedure were explained to the patient including risks of bleeding, infection, perforation, reactions to anesthesia, aspiration and/or pain, informed consent was obtained. The patient was then taken to the endoscopy suite where she was maneuvered into the left lateral decubitus position followed by introduction of deep sedation via propofol and anesthesia support. Once adequate sedation was achieved, a digital rectal examination was performed followed by introduction of the standard colonoscope, which was then advanced to the terminal ileum without difficulty and with the findings listed below. The quality of the prep was good with a small amount of retained stool that was easily suctioned. The patient tolerated the procedure well with no immediate perioperative complications. On conclusion of the procedure, all equipment was removed from the patient and she was transferred to Day Stay in satisfactory condition. FINDINGS: Digital rectal exam: Normal findings were seen on digital rectal examination. However, there were some minimal excoriations of the skin in the perianal area, consistent with scratching. Colon findings: Normal-appearing mucosa was seen in the terminal ileum as well as at the ileocecal valve and appendiceal orifice. A 3- to 4-mm polyp was seen in the cecum and completely removed with cold snare polypectomy. It was retrieved and placed in a specimen jar for further evaluation. Scattered diverticula were seen throughout the entire colon, that were small to medium in size and located in the ascending, transverse, descending, and sigmoid colons. Otherwise, normal-appearing mucosa was seen in the ascending, transverse, descending, and sigmoid colon and rectum. Normal findings were seen on rectal retroflexion. IMPRESSION: 1. A 3- to 4-mm cecal polyp status post cold snare polypectomy. 2. [id number] pancolonic diverticulosis without diverticulitis. 3. Mild excoriation of the perianal skin, most likely due to wiping and/or scratching. RECOMMENDATIONS: 1. We will follow up on the polyp results with repeat colonoscopy depending on pathology report. If adenomatous, I would recommend a repeat colonoscopy in 5 years based on the lack of family history of colon polyps/cancer. 2. Continue current diet. 3. Continue current medications. 4. Would have the patient follow up in the GI Clinic as needed. Job ID: [id number]
== END 2020-02-12 14:35 | disposition home or self-care (01) ==
LOC: SDC 05:52 → EEVIPCON 08:00 → SDC 14:35
PROVIDERS: ATTEND Internal Medicine
PROC: 0DBH8ZX Excision of Cecum, Via Natural or Artificial Opening Endoscopic, Diagnostic (ICD-10-PCS; principal; 2020-02-12)
DX: Z12.11 Encounter for screening for malignant neoplasm of colon (principal); D12.0 Benign neoplasm of cecum; K57.30 Diverticulosis of large intestine without perforation or abscess without bleeding; S30.817A Abrasion of anus, initial encounter; I10 Essential (primary) hypertension; K21.9 Gastro-esophageal reflux disease without esophagitis; F17.210 Nicotine dependence, cigarettes, uncomplicated; J44.9 Chronic obstructive pulmonary disease, unspecified; G47.30 Sleep apnea, unspecified; Z79.82 Long term (current) use of aspirin; Z79.899 Other long term (current) drug therapy; X58.XXXA Exposure to other specified factors, initial encounter
CPT/HCPCS: 88305; J2704

== ENCOUNTER 2020-04-02 11:01 | Emergency (ER) | payer MEDICARE, MEDICAID ==
[2020-04-02 12:08] LABS: #Basophils 0.1 thou/uL (0.0-0.2); #Eosinphils 0.1 thou/uL (0.0-0.7); #Lymphocytes 1.4 thou/uL (1.20-3.40); #Monocytes 0.7 thou/uL (0.11-0.59); #Neutrophils 6.6 thou/uL (1.40-6.50); %Basophils 1.2 % (0.0-1.0); %Eosinophils 1.1 % (0.0-10.0); %Lymphocytes 15.7 % (21.0-51.0); %Monocytes 7.4 % (0.0-10.0); %Neutrophils 74.6 % (42.0-75.0); Hemoglobin 15.4 g/dL (12.0-16.0); Mean Corpuscular HGB CONC 33.3 g/dL (32.0-36.0); Mean Corpuscular Hemoglobin 29.2 pg (27.0-31.0); Mean Corpuscular Volume 87.8 fL (78.0-98.0); Mean Platelet Volume 9.2 fL (7.4-10.4); Platelet Count 214 thou/uL (130-400); RBC Distribution Width 12.6 % (11.5-14.5); Red Blood Cell (RBC) Count 5.26 mill/uL (4.20-5.40); White Blood Cell (WBC) Count 8.8 thou/uL (4.8-10.8)
[2020-04-02 12:11] LABS: Bilirubin Negative (Negative); Blood, Urine Negative (Negative); Clarity Clear (Clear); Glucose, Urine (Dipstick) 30 mg/dL (Negative); Ketone, Urine Negative (Negative); Leukocyte Negative Leu/uL (Negative); Nitrite Negative (Negative); Protein, Urine (Dipstick) 20 mg/dL (Neg-Trace); Specific Gravity, Urine 1.021 (1.002-1.036); Urobilinogen Normal mg/dL (Less than 2)
[2020-04-02 12:15] LABS: ALT (SGPT) 36 U/L (8-55); AST (SGOT) 41 U/L (5-34); Albumin 3.8 g/dL (3.4-4.8); Alkaline Phosphatase 109 U/L (40-110); Anion Gap 14 mmol/L (10-20); BUN (Urea Nitrogen) 13 mg/dL (9.8-20.1); Bilirubin, Total 0.5 mg/dL (0.2-1.2); Calc. Creatinine Clearance 0 mL/min (70-130); Calcium 8.7 mg/dL (7.8-10.44); Carbon Dioxide 22 mmol/L (23-31); Chloride 104 mmol/L (98-107); Estimated GFR-MDRD 63; Globulin 3.1 g/dL (2.4-3.5); Glucose 279 mg/dL (80-115); Potassium 3.5 mmol/L (3.5-5.1); Protein, Total 6.9 g/dL (6.0-8.3); Sodium 136 mmol/L (136-145)
[2020-04-02] MEDS ORDERED: Ketorolac Tromethamine 30 MG/ML VIAL ONE (12:24)
[2020-04-02] MEDS ORDERED: Dexamethasone 4 mg/ml Vial ONE (12:24)
--- NOTE | 2020-04-02 12:27 | CT ---
LUMBAR SPINE CT WITHOUT CONTRAST: Date: 04/02/2020 HISTORY: Low back pain for a few weeks, bilateral lower extremity radiculopathy. TECHNIQUE: Axial CT imaging obtained at 2.5 mm intervals through the lumbar spine without contrast. Coronal and sagittal reformatted imaging obtained. FINDINGS: There is scattered multifocal atherosclerotic calcification involving the abdominal aorta and its bra nches, not optimally assessed on this examination. There is mild anterolisthesis at L4-5 measuring 6.0 mm. Evaluation for central canal and/or neural foraminal stenosis is limited on routine CT exam. T12-L1: No osseous cause of significant central canal or neural foraminal stenosis. L1-2: Small central posterior osteophyte. Mild anterior osteophytosis. No osseous cause of significa nt central canal or neural foraminal stenosis. L2-3: Bilateral facet hypertrophy and hypertrophy of ligamentum flavum with mild disc bulge noted. M ild central canal stenosis and mild bilateral neural foraminal stenosis suspected. L3-4: There is bilateral facet hypertrophy and hypertrophy of the ligamentum flavum. Mild disc bulge suspected with at least mild central canal stenosis. Moderate bilateral neural foraminal stenosis is suspected, right greater than left. L4-5: Prominent bilateral facet hypertrophy. Mild/moderate bilateral neural foraminal stenosis. No o sseous cause of significant central canal stenosis. L5-S1: Prominent bilateral facet hypertrophy, right greater than left. Osteophyte encroachment on th e right neural foramen causes severe central canal stenosis and there is at least moderate left neura l foraminal stenosis. No osseous cause of significant central canal stenosis. There is degenerative change involving bilateral sacroiliac joints. No acute fracture or dislocation. No worrisome lytic or blastic bone lesion. Partially visualized sigmoid diverticulosis present. IMPRESSION: Multilevel degenerative change within the lumbar spine as detailed above. POS: [facility]
--- NOTE | 2020-04-02 13:58 | CT ---
CTA CHEST WITH CONTRAST: Axial tomograms were obtained with multiplanar reconstruction and 3D postprocessing. INDICATION: Cough and shortness of breath. FINDINGS: The pulmonary arteries show adequate enhancement. No evidence of pulmonary embolus identified. There are atherosclerotic changes seen in the thoracic aorta. There is ectasia of the descending tho racic aorta with luminal irregularity and peripheral calcification. The lungs are clear. There is no evidence of infiltrate or consolidation. There is mild vascular co ngestion and cardiomegaly. Some hazy ground-glass opacity may represent mild interstitial edema. Th ere is no confluent alveolar edema or consolidation. No significant effusion. Images through the upper abdomen unremarkable. Degenerative spine changes are prominent. IMPRESSION: 1. No evidence of pulmonary embolus. 2. Prominent atherosclerotic changes in the thoracic aorta with ectasia of the descending thoracic a lissy, peripheral thrombus, and luminal irregularity, and mild luminal narrowing. 3. Cardiomegaly and mild vascular congestion. No focal alveolar consolidation or infiltrate. Some hazy ground-glass opacity is seen as discussed above. POS: [facility]
[2020-04-02] MEDS ORDERED: Morphine 4 MG/ML VIAL ONE (14:09)
--- NOTE | 2020-04-02 15:45 | ULT ---
: Abdominal aortic ultrasound HISTORY: Back pain. COMPARISON: none TECHNIQUE: Grayscale, color flow, Doppler imaging and spectral waveform analysis the aorta FINDINGS: Visualized aorta has a normal caliber. Proximal aorta measures 2.2 cm, mid aorta measures 1 .8 cm, distal aorta measures 1.3 cm Left and right aortic bifurcation approximately 1.5 cm IMPRESSION: No evidence of aneurysm in the visualized aorta. Body habitus does limit evaluation.
== END 2020-04-02 17:25 | disposition home or self-care (01) ==
LOC: ERS 11:01
DX: M54.5 Low back pain (principal); I10 Essential (primary) hypertension; J44.9 Chronic obstructive pulmonary disease, unspecified; F17.200 Nicotine dependence, unspecified, uncomplicated; Z79.51 Long term (current) use of inhaled steroids; Z79.899 Other long term (current) drug therapy
CPT/HCPCS: 51701; 71275; 72131; 76775; 80053; 81003; 84443; 84484; 85025; 85379; 87086; 93005; 96361; 96374; 96375; J1100; J1885; J2270

== ENCOUNTER 2020-04-18 16:22 | Emergency (ER) | payer MEDICARE, MEDICAID ==
[~2020-04-18 16:22] MED LIST changes: -Fentanyl 100 MCG/2 ML VIAL ONE; -Glycopyrrolate 0.2 MG/ML 5 ML SYRINGE ONE; +Iopamidol-370 76% 500 ML 1 ML ONE; -Labetalol HCl 100 MG/20 ML VIAL ONE; -Lidocaine 1% (PF) 30 ML VIAL ONE; -Lidocaine 1% PF 5 ML VIAL ONE; -Ondansetron PF 4 MG/2 ML Vial ONE; -PROPOFOL 200 MG/20 ML VIAL ONE; -Rocuronium Bromide 10 MG/ML (10ML VIAL) ONE; -Succinylcholine Chloride 20 MG/ML 10 ml SYRINGE FS ONE
[2020-04-18 17:51] LABS: #Basophils 0.1 thou/uL (0.0-0.2); #Eosinphils 0.1 thou/uL (0.0-0.7); #Lymphocytes 1.9 thou/uL (1.20-3.40); #Neutrophils 10.4 thou/uL (1.40-6.50); %Basophils 0.6 % (0.0-1.0); %Lymphocytes 13.7 % (21.0-51.0); %Neutrophils 77.6 % (42.0-75.0); Hemoglobin 15.4 g/dL (12.0-16.0); Mean Corpuscular HGB CONC 33.3 g/dL (32.0-36.0); Mean Corpuscular Hemoglobin 29.5 pg (27.0-31.0); Mean Corpuscular Volume 88.6 fL (78.0-98.0); Mean Platelet Volume 8.9 fL (7.4-10.4); Platelet Count 218 thou/uL (130-400); RBC Distribution Width 13.1 % (11.5-14.5); Red Blood Cell (RBC) Count 5.21 mill/uL (4.20-5.40); White Blood Cell (WBC) Count 13.4 thou/uL (4.8-10.8)
--- NOTE | 2020-04-18 17:57 | RAD ---
Exam: Chest one view HISTORY:Shortness of breath. Comparison: 08/27/2018 FINDINGS: Cardiac silhouette: Normal Aorta: Atherosclerosis Pulmonary vessels: Normal Costophrenic angles: Clear LUNGS: No masses or consolidation. Pneumothorax: None Osseous abnormalities: None IMPRESSION: No acute cardiopulmonary process.
[2020-04-18 18:14] LABS: ALT (SGPT) 29 U/L (8-55); AST (SGOT) 28 U/L (5-34); Albumin 3.8 g/dL (3.4-4.8); Alkaline Phosphatase 111 U/L (40-110); Anion Gap 16 mmol/L (10-20); BUN (Urea Nitrogen) 14 mg/dL (9.8-20.1); Bilirubin, Total 1.2 mg/dL (0.2-1.2); Calc. Creatinine Clearance 0 mL/min (70-130); Calcium 8.9 mg/dL (7.8-10.44); Carbon Dioxide 26 mmol/L (23-31); Chloride 101 mmol/L (98-107); Estimated GFR-MDRD 51; Glucose 226 mg/dL (80-115); Potassium 3.6 mmol/L (3.5-5.1); Protein, Total 6.8 g/dL (6.0-8.3); Sodium 139 mmol/L (136-145)
--- NOTE | 2020-04-18 19:37 | CT ---
Exam: CT angiogram of the chest HISTORY: Evaluate for pulmonary arterial system. Elevated d-dimer. Shortness of breath. Hypertension and pain. COMPARISON: 04/02/2020 TECHNIQUE: CT angiogram of the chest is performed in the axial plane. Three-dimensional reformatted i mages are submitted for interpretation FINDINGS: Mediastinum: Redemonstration of enlarged mesenteric lymph nodes. No mass. There is an enlarged subcar inal lymph node measuring 2.0 x 1.4 cm. HEART: Normal size. No significant pericardial fluid. Aorta: There is extensive atherosclerotic disease involving the aortic arch, descending thoracic aort a and upper abdominal aorta. There is short segment moderate luminal narrowing predominantly due to noncalcified plaque in the mid to distal descending thoracic aorta and upper abdominal aorta. The deg ree of atherosclerotic disease is similar to the previous examination. Note, there is evidence of scattered coronary disease. Upper solid abdominal viscera: No acute abnormality. There do appear to be splenic varices. Trachea and central bronchi: Patent Pleural spaces: No effusion Lung parenchyma: Scattered groundglass opacities. No masses or consolidation Pneumothorax: None Osseous structures: No lytic or blastic lesions Pulmonary arteries:Limited evaluation the pulmonary arterial system due to timing of contrast bolus. Adequate contrast opacification of the pulmonary arterial system to the level of the lobar arteries. No filling defect to suggest thromboembolism. IMPRESSION: 1. No evidence of pulmonary artery embolism to the level of the segmental arteries. 2. Nonspecific enlarged subcarinal lymph node, unchanged. 3. Persistent nonspecific groundglass opacities. Correlate for edema or infiltrate. 4. Stable extensive atherosclerosis of the visualized aorta. 5. Splenic varices. Transcribed Date/Time: 04/18/2020 7:42 PM
[2020-04-18] MEDS ORDERED: methylPREDNISolone Sod Succ/PF 125 MG/2 ML VIAL ONE (20:00)
[2020-04-18] MEDS ORDERED: Albuterol Sulfate 2.5 mg/3 ml Neb ONE ×3 (20:43→21:53)
== END 2020-04-18 22:15 | disposition home or self-care (01) ==
LOC: ERS 16:22
DX: J44.1 Chronic obstructive pulmonary disease with (acute) exacerbation (principal); E11.65 Type 2 diabetes mellitus with hyperglycemia; R00.0 Tachycardia, unspecified; I10 Essential (primary) hypertension; F17.210 Nicotine dependence, cigarettes, uncomplicated
CPT/HCPCS: 36415; 71045; 71275; 80053; 83880; 84484; 85025; 85379; 93005; 94640; 96374; J2930; J7611; J7620; Q9967

== ENCOUNTER 2020-04-19 16:51 | Observation (INO) | payer MEDICARE, MEDICAID, OTHER ==
[2020-04-19] MEDS ORDERED: Albuterol 200 PUFF (6.7GM INHALER) ONE (17:47)
[2020-04-19] MEDS ORDERED: Dexamethasone 10 MG/ML VIAL ONE (17:47)
[2020-04-19 17:59] LABS: #Lymphocytes 0.8 thou/uL (1.20-3.40); #Monocytes 0.5 thou/uL (0.11-0.59); #Neutrophils 14.8 thou/uL (1.40-6.50); %Basophils 0.1 % (0.0-1.0); %Eosinophils 0.1 % (0.0-10.0); %Lymphocytes 4.7 % (21.0-51.0); %Monocytes 2.8 % (0.0-10.0); %Neutrophils 92.4 % (42.0-75.0); Hemoglobin 14.4 g/dL (12.0-16.0); Mean Corpuscular HGB CONC 31.8 g/dL (32.0-36.0); Mean Corpuscular Hemoglobin 28.3 pg (27.0-31.0); Mean Corpuscular Volume 89.1 fL (78.0-98.0); Platelet Count 230 thou/uL (130-400); RBC Distribution Width 13.3 % (11.5-14.5)
--- NOTE | 2020-04-19 18:04 | RAD ---
PORTABLE CHEST: Date: 04-19-2020 Time: 5:44 p.m. History: Shortness of breath, dizziness. Comparison: Previous day FINDINGS: The heart size is normal. The aorta is tortuous. No lobar consolidation, pneumothoraces, jerald pulmon desiree edema, or pleural effusions are seen. IMPRESSION: No acute process. POS: [facility]
[2020-04-19 18:16] LABS: ALT (SGPT) 26 U/L (8-55); AST (SGOT) 16 U/L (5-34); Albumin 3.7 g/dL (3.4-4.8); Alkaline Phosphatase 125 U/L (40-110); Anion Gap 19 mmol/L (10-20); BUN (Urea Nitrogen) 21 mg/dL (9.8-20.1); Bilirubin, Total 0.7 mg/dL (0.2-1.2); CK (CPK) 120 U/L (29-168); Calc. Creatinine Clearance 0 mL/min (70-130); Calcium 8.7 mg/dL (7.8-10.44); Carbon Dioxide 18 mmol/L (23-31); Chloride 99 mmol/L (98-107); Estimated GFR-MDRD 40; Globulin 2.5 g/dL (2.4-3.5); Potassium 4.1 mmol/L (3.5-5.1); Protein, Total 6.2 g/dL (6.0-8.3); Sodium 132 mmol/L (136-145)
[2020-04-19 18:20] LABS: Glucose 619 mg/dL (80-115)
[2020-04-19] MEDS ORDERED: Insulin Regular 300 UNITS/3 ML VIAL ONE (18:26)
[2020-04-19] MEDS ORDERED: Aspirin 325 MG TAB ONE (18:26)
--- NOTE | 2020-04-19 19:26 | ULT ---
Left lower extremity venous Doppler ultrasound: 04/19/2020 COMPARISON: None HISTORY: Pain, swelling, edema, assess for DVT TECHNIQUE: Multiplanar grayscale sonographic imaging of the venous structures of the left lower extre mity obtained with color flow and spectral analysis FINDINGS: Left common femoral vein, greater saphenous vein, profunda femoral vein, femoral vein, popl iteal vein, and posterior tibial vein are patent. Normal blood flow, augmentation, and compression within the deep venous system on the left. No evidence for deep venous thrombosis. IMPRESSION: No evidence for deep venous thrombosis of the left lower extremity.
[2020-04-19] MEDS ORDERED: Metoprolol Tartrate 5 MG/5 ML VIAL IVP PRN (21:34)
[2020-04-19] MEDS ORDERED: Dextrose 50% Abboject 50 ML SYRINGE SLOW IVP PRN (21:35)
[2020-04-19] MEDS ORDERED: HumaLOG 300 UNITS/3 ML VIAL SC PRN ×2 (21:35→23:45)
[2020-04-19] MEDS ORDERED: Dextrose 5% in Water 1,000 ML IV PRN (21:35)
[2020-04-19] MEDS ORDERED: Guaifenesin DM 100-10/5 ML UDCUP PO PRN (21:36)
[2020-04-19] MEDS ORDERED: Bacteriostatic Water 30 ML VIAL FS PRN (21:40)
[2020-04-19] MEDS ORDERED: methylPREDNISolone Sod Succ 40 MG VIAL IVP SCH (22:00)
[2020-04-19] MEDS: methylPREDNISolone Sod Succ/PF 125 MG/2 ML VIAL IVP SCH (23:29)
[2020-04-19 23:42] LABS: Troponin I Less than 0.010 ng/mL (< 0.028)
[2020-04-19 23:56] VITALS: BMI 48.1
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
[2020-04-20 03:42] LABS: Hemoglobin A1c 8.1 % (4.0-6.0)
[2020-04-20 03:54] LABS: Anion Gap 15 mmol/L (10-20); BUN (Urea Nitrogen) 21 mg/dL (9.8-20.1); Calc. Creatinine Clearance 81 mL/min (70-130); Calcium 8.6 mg/dL (7.8-10.44); Carbon Dioxide 22 mmol/L (23-31); Chloride 101 mmol/L (98-107); Estimated GFR-MDRD 48; Glucose 468 mg/dL (80-115); Potassium 4.3 mmol/L (3.5-5.1); Sodium 134 mmol/L (136-145)
[2020-04-20 04:00] LABS: Band 8 % (5-11); Hemoglobin 13.2 g/dL (12.0-16.0); Lymphocytes 1 % (21-51); MDiff Complete? YES; Mean Corpuscular HGB CONC 31.3 g/dL (32.0-36.0); Mean Corpuscular Volume 89.7 fL (78.0-98.0); Mean Platelet Volume 9.4 fL (7.4-10.4); Monocytes 1 % (0-10); Platelet Count 184 thou/uL (130-400); RBC Distribution Width 13.4 % (11.5-14.5); Red Blood Cell (RBC) Count 4.72 mill/uL (4.20-5.40); White Blood Cell (WBC) Count 14.2 thou/uL (4.8-10.8)
[2020-04-20] MEDS ORDERED: Acetaminophen 325 MG TAB PO PRN (06:01)
[2020-04-20] MEDS: methylPREDNISolone Sod Succ/PF 125 MG/2 ML VIAL IVP SCH (06:05)
[2020-04-20] MEDS ORDERED: Acetaminophen 500 MG TAB PO PRN (07:56)
[2020-04-20] MEDS ORDERED: HumaLOG 300 UNITS/3 ML VIAL SC PRN (07:57)
[2020-04-20] MEDS ORDERED: Dextrose 50% Abboject 50 ML SYRINGE SLOW IVP PRN (07:58)
[2020-04-20] MEDS ORDERED: Dextrose 5% in Water 1,000 ML IV PRN (07:58)
[2020-04-20] MEDS ORDERED: Insulin Regular 300 UNITS/3 ML VIAL SC SCH (08:00)
[2020-04-20] MEDS ORDERED: predniSONE 20 MG TAB PO SCH (08:00)
[2020-04-20 08:17] VITALS: TEMP 97.5
[2020-04-20] MEDS ORDERED: Albuterol Sulfate 2.5 mg/3 ml Neb NEB PRN (08:30)
[2020-04-20] MEDS: Heparin 5,000 UNITS/ML VIAL SC SCH ×2 (08:38→15:18)
[2020-04-20] MEDS: metFORMIN 500 MG TAB PO SCH ×2 (08:39→17:05)
[2020-04-20] MEDS ORDERED: Losartan 25 MG TAB PO SCH (09:00)
[2020-04-20 09:12] LABS: Neutrophil 90 % (42-75)
[2020-04-20 12:25] VITALS: BP 135/86
[2020-04-20 13:04] LABS: SARS-CoV-2 MS2 Positive; SARS-CoV-2 N Gene Negative; SARS-CoV-2 S Gene Negative; SARS-CoV-2 by NAA Not Detected (NotDetected); SARS-CoV-2 orf1ab Negative
[2020-04-20] MEDS ORDERED: Mometasone 200 MCG/Formoterol 5 MCG 120 PUFF INHALER INH SCH (18:30)
--- NOTE | 2020-04-20 23:14 | DIS ---
DATE OF ADMISSION: 04/19/2020 DATE OF DISCHARGE: 04/20/2020 HOSPITAL COURSE: Ms. Wheeler is a 64-year-old female with a medical history of asthma, COPD, and hypertension, who presented for lightheadedness. The patient was recently diagnosed with diabetes and was started on metformin. Per the patient, she was never aware of being diagnosed with diabetes. Over the past few days, she had polyuria and urinary frequency. In addition to that, the patient has been using Lasix to treat chronic venous insufficiency. Prior to discharge, the patient was educated regarding diabetes and cessation with fluid imbalance and dehydration, in addition to Lasix not being indicated for treatment of chronic venous insufficiency. She was requested to use compression stockings and elevate the legs above the level of the heart when supine. She was discharged home hemodynamically stable with no complaints. PHYSICAL EXAMINATION: VITAL SIGNS: Blood pressure 135/86, pulse 95, respiratory rate 20, oxygen saturation 96% on room air, and temperature 97.5. GENERAL: Lying comfortably in bed. Awake and alert. Morbidly obese. HEENT: Normocephalic and atraumatic. CARDIAC: Irregularly irregular rate and rhythm with occasional extra beats (PACs on telemetry). No murmurs, gallops, or rubs. LUNGS: Clear to auscultation bilaterally. No wheezing, rales, or rhonchi. GI: Soft, nontender, and nondistended. Normal bowel sounds. EXTREMITIES: Bilateral pitting lower extremity edema, left greater than right. Old scar over the left knee. PSYCHIATRIC: Proper mood and affect. Alert and oriented x3. MEDICATION LIST: New medications, metformin 1000 mg p.o. b.i.d. Discontinued medications, Lasix. Continued medications; 1. Tylenol. 2. Albuterol. 3. Symbicort. 4. Losartan. Job ID: [id number]
--- NOTE | 2020-04-24 11:31 | EKG ---
Test Reason : Blood Pressure : / mmHG Vent. Rate : 110 BPM Atrial Rate : 110 BPM P-R Int : 158 ms QRS Dur : 082 ms QT Int : 374 ms P-R-T Axes : 061 034 052 degrees QTc Int : 506 ms Sinus tachycardia Otherwise normal ECG Confirmed by JOLENE DOBSON, GONSALO German ([id number]), slot editor RA MAY ([id number]) on 04/24/2020 11:31:12 AM Referred By: Confirmed By:GONSALO FERNÁNDEZ MD
== END 2020-04-20 17:25 | disposition home or self-care (01) ==
LOC: ERS 16:51 → 2SW 18:41
PROVIDERS: ADMIT Emergency Medicine; ATTEND Student in an Organized Health Care Education/Training Program
DX: J44.1 Chronic obstructive pulmonary disease with (acute) exacerbation (principal); E11.9 Type 2 diabetes mellitus without complications; I87.2 Venous insufficiency (chronic) (peripheral); I10 Essential (primary) hypertension; F17.210 Nicotine dependence, cigarettes, uncomplicated; Z79.899 Other long term (current) drug therapy; Z20.828 Contact with and (suspected) exposure to other viral communicable diseases
CPT/HCPCS: 71045; 80048; 80053; 82010; 82550; 82962 ×2; 83036; 83880; 84484 ×2; 85007; 85025; 85027; 93005; 93971; 94640 ×2; 94760; 96361; 96374; 96375 ×2; 96376; 99285; G0378 ×2; U0003; 36415; 36416; 87635; J1100; J1644; J1815; J2930; J7512; J7620

== ENCOUNTER 2020-12-28 10:36 | Observation (INO) | payer MEDICARE, MEDICAID ==
[2020-12-28 11:21] LABS: #Eosinphils 0.3 thou/uL (0.0-0.7); #Lymphocytes 2.4 thou/uL (1.20-3.40); #Monocytes 0.9 thou/uL (0.11-0.59); #Neutrophils 5.8 thou/uL (1.40-6.50); %Basophils 0.4 % (0.0-1.0); %Eosinophils 3.3 % (0.0-10.0); %Lymphocytes 25.8 % (21.0-51.0); %Monocytes 9.2 % (0.0-10.0); %Neutrophils 61.4 % (42.0-75.0); Hemoglobin 14.8 g/dL (12.0-16.0); Mean Corpuscular Hemoglobin 29.2 pg (27.0-31.0); Mean Corpuscular Volume 91.2 fL (78.0-98.0); Mean Platelet Volume 8.1 fL (7.4-10.4); Platelet Count 291 thou/uL (130-400); RBC Distribution Width 12.2 % (11.5-14.5); Red Blood Cell (RBC) Count 5.08 mill/uL (4.20-5.40); White Blood Cell (WBC) Count 9.5 thou/uL (4.8-10.8)
[2020-12-28 11:54] LABS: ALT (SGPT) 13 U/L (8-55); AST (SGOT) 19 U/L (5-34); Albumin 3.7 g/dL (3.4-4.8); Alkaline Phosphatase 100 U/L (40-110); Anion Gap 9 mmol/L (10-20); BUN (Urea Nitrogen) 18 mg/dL (9.8-20.1); Bilirubin, Total 0.4 mg/dL (0.2-1.2); Calc. Creatinine Clearance 0 mL/min (70-130); Calcium 9.2 mg/dL (7.8-10.44); Carbon Dioxide 28 mmol/L (23-31); Chloride 107 mmol/L (98-107); Globulin 3.1 g/dL (2.4-3.5); Glucose 105 mg/dL (80-115); Lipase 30 U/L (8-78); Protein, Total 6.8 g/dL (5.8-8.1); Sodium 140 mmol/L (136-145)
[2020-12-28] MEDS ORDERED: Aspirin Chewable 81 MG TAB ONE (14:23)
[2020-12-28] MEDS ORDERED: Acetaminophen 650 MG Suppository PR PRN (15:25)
[2020-12-28] MEDS ORDERED: Ondansetron PF 4 MG/2 ML Vial IVP PRN (15:25)
[2020-12-28] MEDS ORDERED: Ondansetron ODT 4 MG TAB PO PRN (15:25)
[2020-12-28] MEDS ORDERED: Nitroglycerin 0.4 MG TAB (25 Tab Bottle) SL PRN (15:25)
[2020-12-28 15:46] LABS: Troponin I Less than 0.010 ng/mL (< 0.028)
[2020-12-28] MEDS ORDERED: Aspirin 325 MG TAB PO SCH (16:00)
[2020-12-28 18:49] LABS: Troponin I 0.011 ng/mL (< 0.028)
[2020-12-28 19:46] VITALS: BMI 45.1
[2020-12-28 21:28] LABS: SARS-CoV-2 PCR by NAA Not Detected (NotDetected)
[2020-12-28] MEDS: Acetaminophen 325 MG TAB PO PRN (21:37)
[2020-12-28] MEDS ORDERED: Insulin Regular 300 UNITS/3 ML VIAL SC PRN (22:42)
[2020-12-28] MEDS ORDERED: Dextrose 50% Abboject 50 ML SYRINGE SLOW IVP PRN (22:42)
[2020-12-28] MEDS ORDERED: Dextrose 5% in Water 1,000 ML IV PRN (22:42)
[2020-12-29 05:12] LABS: #Basophils 0.1 thou/uL (0.0-0.2); #Eosinphils 0.3 thou/uL (0.0-0.7); #Lymphocytes 2.4 thou/uL (1.20-3.40); #Monocytes 0.7 thou/uL (0.11-0.59); #Neutrophils 5.3 thou/uL (1.40-6.50); %Basophils 0.8 % (0.0-1.0); %Lymphocytes 27.3 % (21.0-51.0); %Neutrophils 60.9 % (42.0-75.0); Hemoglobin 14.4 g/dL (12.0-16.0); Mean Corpuscular HGB CONC 32.2 g/dL (32.0-36.0); Mean Corpuscular Hemoglobin 29.2 pg (27.0-31.0); Mean Corpuscular Volume 90.7 fL (78.0-98.0); Platelet Count 263 thou/uL (130-400); Red Blood Cell (RBC) Count 4.93 mill/uL (4.20-5.40); White Blood Cell (WBC) Count 8.6 thou/uL (4.8-10.8)
[2020-12-29 05:38] LABS: Anion Gap 11 mmol/L (10-20); BUN (Urea Nitrogen) 15 mg/dL (9.8-20.1); Calc. Creatinine Clearance 103 mL/min (70-130); Calcium 9.2 mg/dL (7.8-10.44); Carbon Dioxide 23 mmol/L (23-31); Cardiac Risk 3.3 (Less than 4.5); Chloride 107 mmol/L (98-107); Cholesterol 100 mg/dl (< 200 Desired); Glucose 114 mg/dL (80-115); HDL Cholesterol 30 mg/dL (>60 Neg Risk); LDL Cholesterol, Calculated 52 mg/dL; Potassium 4.3 mmol/L (3.5-5.1); Sodium 137 mmol/L (136-145); Triglycerides 89 mg/dL (Less than 150)
[2020-12-29] MEDS ORDERED: Mometasone 200 MCG/Formoterol 5 MCG 120 PUFF INHALER INH SCH (06:30)
[2020-12-29] MEDS: Acetaminophen 325 MG TAB PO PRN (07:35)
[2020-12-29] MEDS ORDERED: metFORMIN 500 MG TAB PO SCH (08:00)
[2020-12-29] MEDS ORDERED: Regadenoson 0.4 MG/5 ML SYRINGE ONE (08:42)
[2020-12-29] MEDS ORDERED: Aspirin Chewable 81 MG TAB PO SCH (09:00)
[2020-12-29] MEDS ORDERED: Atorvastatin Calcium 20 MG TAB PO SCH (09:00)
[2020-12-29] MEDS ORDERED: Losartan 25 MG TAB PO SCH (09:00)
[2020-12-29 12:30] VITALS: BP 130/61; TEMP 97.7
== END 2020-12-29 15:22 | disposition home or self-care (01) ==
LOC: ERS 10:36 → ERHOLD 14:44 → 2SW 18:51
PROVIDERS: ADMIT Internal Medicine; ATTEND Internal Medicine
DX: R07.89 Other chest pain (principal); I10 Essential (primary) hypertension; E78.5 Hyperlipidemia, unspecified; E11.9 Type 2 diabetes mellitus without complications; F17.210 Nicotine dependence, cigarettes, uncomplicated; I70.0 Atherosclerosis of aorta; K57.30 Diverticulosis of large intestine without perforation or abscess without bleeding; M47.816 Spondylosis without myelopathy or radiculopathy, lumbar region; J44.9 Chronic obstructive pulmonary disease, unspecified; Z79.84 Long term (current) use of oral hypoglycemic drugs; Z79.899 Other long term (current) drug therapy; Z20.822 Contact with and (suspected) exposure to COVID-19
CPT/HCPCS: 71045; 71275; 74174; 78452; 80048; 80053; 80061; 82962 ×2; 83690; 84484 ×2; 85025 ×2; 93005; 93017; 94640; 94760; 99285; A9500; G0378 ×3; U0003; U0005; 36415; 36416; 87635; J2785; Q0162; Q9967

== ENCOUNTER 2021-05-08 19:01 | Emergency (ER) | payer MEDICAID, MEDICARE ==
[2021-05-08] MEDS ORDERED: Ketorolac Tromethamine 30 MG/ML VIAL ONE (20:06)
== END 2021-05-08 21:11 | disposition home or self-care (01) ==
LOC: ERS 19:01
DX: S90.01XA Contusion of right ankle, initial encounter (principal); E11.9 Type 2 diabetes mellitus without complications; J44.9 Chronic obstructive pulmonary disease, unspecified; I10 Essential (primary) hypertension; F17.210 Nicotine dependence, cigarettes, uncomplicated; Z79.899 Other long term (current) drug therapy; X58.XXXA Exposure to other specified factors, initial encounter
CPT/HCPCS: 96372; J1885

== ENCOUNTER 2021-10-17 17:03 | Inpatient (IN) | payer MEDICARE, MEDICAID ==
[2021-10-17 17:51] LABS: #Eosinphils 0.2 thou/uL (0.0-0.7); #Lymphocytes 2.3 thou/uL (1.20-3.40); #Monocytes 1.1 thou/uL (0.11-0.59); #Neutrophils 8.8 thou/uL (1.40-6.50); %Basophils 0.4 % (0.0-1.0); %Eosinophils 1.7 % (0.0-10.0); %Lymphocytes 18.2 % (21.0-51.0); %Monocytes 8.6 % (0.0-10.0); %Neutrophils 71.1 % (42.0-75.0); Hemoglobin 15.4 g/dL (12.0-16.0); Mean Corpuscular HGB CONC 32.6 g/dL (32.0-36.0); Mean Corpuscular Hemoglobin 30.2 pg (27.0-31.0); Mean Corpuscular Volume 92.6 fL (78.0-98.0); Mean Platelet Volume 8.1 fL (7.4-10.4); Platelet Count 252 thou/uL (130-400); RBC Distribution Width 12.1 % (11.5-14.5); Red Blood Cell (RBC) Count 5.08 mill/uL (4.20-5.40); White Blood Cell (WBC) Count 12.4 thou/uL (4.8-10.8)
[2021-10-17] MEDS ORDERED: methylPREDNISolone Sod Succ/PF 125 MG/2 ML VIAL ONE (17:51)
[2021-10-17 18:04] LABS: ALT (SGPT) 19 U/L (8-55); AST (SGOT) 22 U/L (5-34); Albumin 4.1 g/dL (3.4-4.8); Alkaline Phosphatase 126 U/L (40-110); Anion Gap 14 mmol/L (10-20); BUN (Urea Nitrogen) 18 mg/dL (9.8-20.1); Bilirubin, Total 0.6 mg/dL (0.2-1.2); Calc. Creatinine Clearance 0 mL/min (70-130); Calcium 9.1 mg/dL (7.8-10.44); Carbon Dioxide 23 mmol/L (23-31); Chloride 106 mmol/L (98-107); Globulin 2.7 g/dL (2.4-3.5); Glucose 136 mg/dL (80-115); Potassium 4.4 mmol/L (3.5-5.1); Protein, Total 6.8 g/dL (5.8-8.1); Sodium 139 mmol/L (136-145)
[2021-10-17] MEDS ORDERED: Albuterol Sulfate 2.5 mg/3 ml Neb ONE (18:14)
[2021-10-17] MEDS ORDERED: Ipratropium Bromide 2.5 ml Neb ONE (18:14)
[2021-10-17] MEDS ORDERED: Furosemide 40 MG/4 ML VIAL ONE (21:08)
[2021-10-17 22:43] VITALS: BMI 47.5
[2021-10-18] MEDS ORDERED: HYDROcodone/Acetaminophen 5/325 mg Tablet PO PRN (08:56)
[2021-10-18] MEDS ORDERED: Ondansetron PF 4 MG/2 ML Vial IVP PRN (08:56)
[2021-10-18] MEDS ORDERED: Calcium Carbonate 500 MG ChewTAB PO PRN (08:56)
[2021-10-18] MEDS ORDERED: Senokot S 8.6-50 MG TAB PO PRN (08:56)
[2021-10-18] MEDS ORDERED: guaiFENesin/Codeine 200 mg/20 mg 10 ml Cup PO PRN (08:58)
[2021-10-18] MEDS ORDERED: Dextrose 5% in Water 1,000 ML IV PRN (08:59)
[2021-10-18] MEDS ORDERED: Dextrose 50% Abboject 50 ML SYRINGE SLOW IVP PRN (08:59)
[2021-10-18] MEDS ORDERED: hydrALAZINE 20 MG/ML VIAL SLOW IVP PRN (09:00)
[2021-10-18] MEDS ORDERED: Non-Formulary Item 1 EACH (Losartan Potassium [Losartan Potassium] 100 MG Tablet) PO SCH (09:00)
[2021-10-18 09:42] LABS: Troponin I 0.017 ng/mL (< 0.028)
[2021-10-18] MEDS: Enoxaparin Sodium 40 MG/0.4 ML SYRINGE SC SCH (10:22)
[2021-10-18] MEDS: methylPREDNISolone Sod Succ 40 MG VIAL IVP SCH ×2 (10:22→17:27)
[2021-10-18] MEDS: guaiFENesin ER 600 MG TAB PO SCH ×2 (10:22→20:04)
[2021-10-18] MEDS: Atorvastatin Calcium 20 MG TAB PO SCH (10:23)
[2021-10-18] MEDS: Famotidine 20 MG TAB PO SCH ×2 (10:23→20:04)
[2021-10-18] MEDS: Losartan 25 MG TAB PO SCH (10:23)
[2021-10-18] MEDS: Nicotine 21 MG PATCH TD SCH (10:24)
[2021-10-18] MEDS: HumaLOG 300 UNITS/3 ML VIAL SC PRN ×3 (12:04→20:05)
[2021-10-18 12:12] LABS: SARS-CoV-2 PCR NAA for Saliva Not Detected (NotDetected)
[2021-10-18 12:22] LABS: Troponin I 0.016 ng/mL (< 0.028)
[2021-10-18] MEDS: Lantus 1000 UNITS/10 ML VIAL SC SCH (20:04)
[2021-10-19] MEDS: methylPREDNISolone Sod Succ 40 MG VIAL IVP SCH ×3 (00:59→20:36)
[2021-10-19] MEDS: Acetaminophen 325 MG TAB PO PRN (01:06)
[2021-10-19 04:03] LABS: #Lymphocytes 0.9 thou/uL (1.20-3.40); #Monocytes 0.6 thou/uL (0.11-0.59); #Neutrophils 13.4 thou/uL (1.40-6.50); %Basophils 0.1 % (0.0-1.0); %Eosinophils 0.1 % (0.0-10.0); %Lymphocytes 6.2 % (21.0-51.0); %Monocytes 3.7 % (0.0-10.0); Hemoglobin 13.9 g/dL (12.0-16.0); Mean Corpuscular HGB CONC 31.7 g/dL (32.0-36.0); Mean Corpuscular Hemoglobin 29.5 pg (27.0-31.0); Mean Platelet Volume 8.6 fL (7.4-10.4); Platelet Count 210 thou/uL (130-400); RBC Distribution Width 12.1 % (11.5-14.5); Red Blood Cell (RBC) Count 4.71 mill/uL (4.20-5.40); White Blood Cell (WBC) Count 14.9 thou/uL (4.8-10.8)
[2021-10-19 04:21] LABS: Anion Gap 13 mmol/L (10-20); BUN (Urea Nitrogen) 25 mg/dL (9.8-20.1); Calc. Creatinine Clearance 82 mL/min (70-130); Calcium 8.9 mg/dL (7.8-10.44); Carbon Dioxide 21 mmol/L (23-31); Chloride 102 mmol/L (98-107); Glucose 334 mg/dL (80-115); Potassium 5.1 mmol/L (3.5-5.1); Sodium 131 mmol/L (136-145)
[2021-10-19 04:43] LABS: Hemoglobin A1c 6.8 % (4.0-6.0)
[2021-10-19] MEDS: HumaLOG 300 UNITS/3 ML VIAL SC PRN ×3 (06:35→17:17)
[2021-10-19] MEDS: metFORMIN 500 MG TAB PO SCH (07:57)
[2021-10-19] MEDS: Losartan 25 MG TAB PO SCH (07:57)
[2021-10-19] MEDS: Famotidine 20 MG TAB PO SCH ×2 (07:57→20:36)
[2021-10-19] MEDS: guaiFENesin ER 600 MG TAB PO SCH ×2 (07:57→20:36)
[2021-10-19] MEDS: Enoxaparin Sodium 40 MG/0.4 ML SYRINGE SC SCH (07:57)
[2021-10-19] MEDS: Nicotine 21 MG PATCH TD SCH (07:58)
[2021-10-19] MEDS: Atorvastatin Calcium 20 MG TAB PO SCH (07:58)
[2021-10-19] MEDS: Lantus 1000 UNITS/10 ML VIAL SC SCH (21:33)
[2021-10-20 06:26] LABS: Anion Gap 14 mmol/L (10-20); BUN (Urea Nitrogen) 22 mg/dL (9.8-20.1); Calc. Creatinine Clearance 80 mL/min (70-130); Calcium 9.2 mg/dL (7.8-10.44); Carbon Dioxide 23 mmol/L (23-31); Chloride 103 mmol/L (98-107); Glucose 339 mg/dL (80-115); Magnesium 2.2 mg/dL (1.6-2.6); Potassium 4.7 mmol/L (3.5-5.1); Sodium 135 mmol/L (136-145)
[2021-10-20] MEDS: HumaLOG 300 UNITS/3 ML VIAL SC PRN ×2 (06:29→12:34)
[2021-10-20 06:33] LABS: #Lymphocytes 1.2 thou/uL (1.20-3.40); #Monocytes 0.6 thou/uL (0.11-0.59); #Neutrophils 13.4 thou/uL (1.40-6.50); %Basophils 0.1 % (0.0-1.0); %Lymphocytes 7.6 % (21.0-51.0); %Monocytes 4.2 % (0.0-10.0); Hemoglobin 14.7 g/dL (12.0-16.0); Mean Corpuscular HGB CONC 31.5 g/dL (32.0-36.0); Mean Corpuscular Hemoglobin 29.6 pg (27.0-31.0); Mean Corpuscular Volume 93.9 fL (78.0-98.0); Mean Platelet Volume 8.2 fL (7.4-10.4); Platelet Count 258 thou/uL (130-400); RBC Distribution Width 12.2 % (11.5-14.5); Red Blood Cell (RBC) Count 4.95 mill/uL (4.20-5.40); White Blood Cell (WBC) Count 15.2 thou/uL (4.8-10.8)
[2021-10-20] MEDS: Atorvastatin Calcium 20 MG TAB PO SCH (08:50)
[2021-10-20] MEDS: Famotidine 20 MG TAB PO SCH ×2 (08:50→21:31)
[2021-10-20] MEDS: guaiFENesin ER 600 MG TAB PO SCH ×2 (08:50→21:31)
[2021-10-20] MEDS: Enoxaparin Sodium 40 MG/0.4 ML SYRINGE SC SCH (08:50)
[2021-10-20] MEDS: metFORMIN 500 MG TAB PO SCH (08:50)
[2021-10-20] MEDS: Losartan 25 MG TAB PO SCH (08:51)
[2021-10-20] MEDS: Nicotine 21 MG PATCH TD SCH (08:52)
[2021-10-20] MEDS: methylPREDNISolone Sod Succ 40 MG VIAL IVP SCH ×2 (08:53→21:32)
[2021-10-20] MEDS ORDERED: Carvedilol 3.125 MG TAB PO SCH ×2 (08:54→09:30)
[2021-10-20] MEDS ORDERED: ALPRAZolam 0.25 MG TAB PO PRN (09:08)
[2021-10-20] MEDS ORDERED: ALPRAZolam 0.25 MG TAB PO SCH (09:15)
[2021-10-20] MEDS: Carvedilol 3.125 MG TAB PO SCH (17:23)
[2021-10-20] MEDS: Lantus 1000 UNITS/10 ML VIAL SC SCH (21:32)
[2021-10-21 04:41] LABS: #Lymphocytes 0.8 thou/uL (1.20-3.40); #Monocytes 0.4 thou/uL (0.11-0.59); %Basophils 0.1 % (0.0-1.0); %Eosinophils 0.2 % (0.0-10.0); %Lymphocytes 7.7 % (21.0-51.0); %Monocytes 3.5 % (0.0-10.0); %Neutrophils 88.6 % (42.0-75.0); Hemoglobin 13.6 g/dL (12.0-16.0); Mean Corpuscular HGB CONC 31.7 g/dL (32.0-36.0); Mean Corpuscular Hemoglobin 30.1 pg (27.0-31.0); Mean Platelet Volume 8.3 fL (7.4-10.4); Platelet Count 200 thou/uL (130-400); RBC Distribution Width 12.1 % (11.5-14.5); Red Blood Cell (RBC) Count 4.52 mill/uL (4.20-5.40); White Blood Cell (WBC) Count 10.1 thou/uL (4.8-10.8)
[2021-10-21 05:06] LABS: Anion Gap 12 mmol/L (10-20); BUN (Urea Nitrogen) 30 mg/dL (9.8-20.1); Calc. Creatinine Clearance 82 mL/min (70-130); Calcium 8.7 mg/dL (7.8-10.44); Carbon Dioxide 21 mmol/L (23-31); Chloride 106 mmol/L (98-107); Glucose 356 mg/dL (80-115); Potassium 4.4 mmol/L (3.5-5.1); Sodium 135 mmol/L (136-145)
[2021-10-21] MEDS: HumaLOG 300 UNITS/3 ML VIAL SC PRN (06:00)
[2021-10-21] MEDS: Enoxaparin Sodium 40 MG/0.4 ML SYRINGE SC SCH (08:20)
[2021-10-21] MEDS: Atorvastatin Calcium 20 MG TAB PO SCH (08:20)
[2021-10-21] MEDS: metFORMIN 500 MG TAB PO SCH (08:20)
[2021-10-21] MEDS: Losartan 25 MG TAB PO SCH (08:20)
[2021-10-21] MEDS: guaiFENesin ER 600 MG TAB PO SCH (08:20)
[2021-10-21] MEDS: Famotidine 20 MG TAB PO SCH (08:20)
[2021-10-21] MEDS: methylPREDNISolone Sod Succ 40 MG VIAL IVP SCH ×2 (08:20→08:43)
[2021-10-21] MEDS: Carvedilol 3.125 MG TAB PO SCH (08:20)
[2021-10-21] MEDS: Nicotine 21 MG PATCH TD SCH (08:21)
[2021-10-21 08:39] VITALS: BP 120/70; TEMP 97.7
[2021-10-21] MEDS ORDERED: predniSONE 20 MG TAB PO SCH (09:15)
[2021-10-21] MEDS: Acetaminophen 325 MG TAB PO PRN (11:05)
== END 2021-10-21 12:12 | disposition home or self-care (01) | DRG 191 ==
LOC: ERS 17:03 → 2SW 20:40 → OBSVTOIN 10-18 08:59
PROVIDERS: ADMIT Student in an Organized Health Care Education/Training Program; ATTEND Family Medicine
DX: J44.1 Chronic obstructive pulmonary disease with (acute) exacerbation (principal); Z68.42 Body mass index [BMI] 45.0-49.9, adult; I47.2 Ventricular tachycardia; Z20.822 Contact with and (suspected) exposure to COVID-19; E66.01 Morbid (severe) obesity due to excess calories; E11.9 Type 2 diabetes mellitus without complications; I10 Essential (primary) hypertension; F17.210 Nicotine dependence, cigarettes, uncomplicated; E78.5 Hyperlipidemia, unspecified; R07.89 Other chest pain; Z71.6 Tobacco abuse counseling; Z79.899 Other long term (current) drug therapy; Z79.84 Long term (current) use of oral hypoglycemic drugs; Z90.49 Acquired absence of other specified parts of digestive tract; Z98.890 Other specified postprocedural states
CPT/HCPCS: 36415; 36416; 71045; 80048; 80053; 83036; 83735; 83880; 84443; 84484; 85025; 93005; 93010; 93306; 94640; 94644; 96374; 96375; G0378; J1650; J1815; J1940; J1956; J2920; J2930; J7512; J7611; J7620; U0003; U0005

== ENCOUNTER 2022-04-03 08:04 | Inpatient (IN) | payer OTHER, MEDICAID ==
[2022-04-03 09:11] LABS: #Eosinphils 0.2 thou/uL (0.0-0.7); #Lymphocytes 1.8 thou/uL (1.20-3.40); #Neutrophils 7.2 thou/uL (1.40-6.50); %Basophils 0.3 % (0.0-1.0); %Eosinophils 1.6 % (0.0-10.0); %Lymphocytes 17.3 % (21.0-51.0); %Monocytes 10.1 % (0.0-10.0); %Neutrophils 70.8 % (42.0-75.0); Hemoglobin 14.9 g/dL (12.0-16.0); Mean Corpuscular HGB CONC 32.9 g/dL (32.0-36.0); Mean Corpuscular Volume 91.2 fL (78.0-98.0); Mean Platelet Volume 8.2 fL (7.4-10.4); Platelet Count 209 thou/uL (130-400); RBC Distribution Width 12.1 % (11.5-14.5); Red Blood Cell (RBC) Count 4.97 mill/uL (4.20-5.40); White Blood Cell (WBC) Count 10.1 thou/uL (4.8-10.8)
[2022-04-03 09:32] LABS: ALT (SGPT) 14 U/L (8-55); AST (SGOT) 20 U/L (5-34); Albumin 3.9 g/dL (3.4-4.8); Alkaline Phosphatase 87 U/L (40-110); Anion Gap 17 mmol/L (10-20); BUN (Urea Nitrogen) 27 mg/dL (9.8-20.1); Bilirubin, Total 1.4 mg/dL (0.2-1.2); Calc. Creatinine Clearance 0 mL/min (70-130); Carbon Dioxide 25 mmol/L (23-31); Chloride 103 mmol/L (98-107); Estimated GFR 17; Globulin 2.4 g/dL (2.4-3.5); Glucose 118 mg/dL (80-115); Potassium 4.5 mmol/L (3.5-5.1); Protein, Total 6.3 g/dL (5.8-8.1); Sodium 140 mmol/L (136-145)
[2022-04-03] MEDS ORDERED: methylPREDNISolone Sod Succ/PF 125 MG/2 ML VIAL ONE (09:49)
[2022-04-03] MEDS ORDERED: Aspirin 325 MG TAB ONE (09:49)
[2022-04-03 12:40] LABS: Bilirubin Negative (Negative); Blood, Urine Negative (Negative); Clarity Clear (Clear); Glucose, Urine (Dipstick) Normal (Negative); Ketone, Urine Negative (Negative); Leukocyte Negative Leu/uL (Negative); Nitrite Negative (Negative); Protein, Urine (Dipstick) 20 mg/dL (Neg-Trace); Specific Gravity, Urine 1.008 (1.002-1.036); Urobilinogen Normal mg/dL (Less than 2)
[2022-04-03 13:01] LABS: Troponin I 0.014 ng/mL (< 0.028)
[2022-04-03] MEDS ORDERED: Dextrose 50% Abboject 50 ML SYRINGE SLOW IVP PRN (15:29)
[2022-04-03] MEDS ORDERED: Ondansetron ODT 4 MG TAB PO PRN (15:29)
[2022-04-03] MEDS ORDERED: Dextrose 5% in Water 1,000 ML IV PRN (15:29)
[2022-04-03 16:19] VITALS: BMI 48.9
[2022-04-03 17:18] LABS: Creatinine, Urine 75.72 mg/dL (47-110)
[2022-04-03] MEDS ORDERED: Amlodipine 5 MG TAB PO SCH (17:30)
[2022-04-03] MEDS: Famotidine 20 MG TAB PO SCH (20:25)
[2022-04-03] MEDS: hydrALAZINE 20 MG/ML VIAL SLOW IVP PRN (20:26)
[2022-04-03] MEDS: HumaLOG 300 UNITS/3 ML VIAL SC PRN (20:32)
[2022-04-03] MEDS: Heparin 5,000 UNITS/ML VIAL SC SCH (20:33)
[2022-04-03] MEDS ORDERED: Labetalol HCl 100 MG/20 ML VIAL SLOW IVP PRN (23:01)
[2022-04-03] MEDS ORDERED: Lactated Ringer's 1,000 ML IV SCH (23:15)
[2022-04-04 05:13] LABS: #Lymphocytes 1.2 thou/uL (1.20-3.40); #Monocytes 0.9 thou/uL (0.11-0.59); #Neutrophils 10.6 thou/uL (1.40-6.50); %Basophils 0.1 % (0.0-1.0); %Eosinophils 0.1 % (0.0-10.0); %Lymphocytes 9.2 % (21.0-51.0); %Monocytes 6.8 % (0.0-10.0); %Neutrophils 83.7 % (42.0-75.0); Mean Corpuscular HGB CONC 33.3 g/dL (32.0-36.0); Mean Corpuscular Hemoglobin 29.8 pg (27.0-31.0); Mean Corpuscular Volume 89.4 fL (78.0-98.0); Mean Platelet Volume 8.6 fL (7.4-10.4); Platelet Count 191 thou/uL (130-400); RBC Distribution Width 12.1 % (11.5-14.5); Red Blood Cell (RBC) Count 4.69 mill/uL (4.20-5.40); White Blood Cell (WBC) Count 12.6 thou/uL (4.8-10.8)
[2022-04-04 05:24] LABS: Anion Gap 18 mmol/L (10-20); BUN (Urea Nitrogen) 42 mg/dL (9.8-20.1); Calc. Creatinine Clearance 25 mL/min (70-130); Calcium 8.8 mg/dL (7.8-10.44); Carbon Dioxide 20 mmol/L (23-31); Chloride 106 mmol/L (98-107); Estimated GFR 13; Glucose 155 mg/dL (80-115); Potassium 4.7 mmol/L (3.5-5.1); Sodium 139 mmol/L (136-145)
[2022-04-04] MEDS: Heparin 5,000 UNITS/ML VIAL SC SCH ×3 (11:08→20:03)
[2022-04-04] MEDS: Sodium Chloride 0.9% 1,000 ML IV SCH ×2 (11:08→17:58)
[2022-04-04] MEDS: Amlodipine 5 MG TAB PO SCH (11:08)
[2022-04-04] MEDS: methylPREDNISolone Sod Succ 40 MG VIAL IVP SCH ×3 (11:09→23:34)
[2022-04-04] MEDS: Acetaminophen 325 MG TAB PO PRN (16:03)
[2022-04-04] MEDS: hydrALAZINE 20 MG/ML VIAL SLOW IVP PRN (16:25)
[2022-04-04] MEDS: Famotidine 20 MG TAB PO SCH (20:03)
[2022-04-04] MEDS: HumaLOG 300 UNITS/3 ML VIAL SC PRN (20:07)
[2022-04-05] MEDS: Sodium Chloride 0.9% 1,000 ML IV SCH ×3 (02:10→17:14)
[2022-04-05] MEDS: methylPREDNISolone Sod Succ 40 MG VIAL IVP SCH ×4 (05:35→23:49)
[2022-04-05 07:06] LABS: #Monocytes 0.4 thou/uL (0.11-0.59); #Neutrophils 12.9 thou/uL (1.40-6.50); %Basophils 0.2 % (0.0-1.0); %Eosinophils 0.2 % (0.0-10.0); %Lymphocytes 6.9 % (21.0-51.0); %Monocytes 2.7 % (0.0-10.0); %Neutrophils 89.9 % (42.0-75.0); Hemoglobin 14.2 g/dL (12.0-16.0); Mean Corpuscular Hemoglobin 29.1 pg (27.0-31.0); Mean Corpuscular Volume 90.7 fL (78.0-98.0); Mean Platelet Volume 8.4 fL (7.4-10.4); Platelet Count 248 thou/uL (130-400); RBC Distribution Width 12.4 % (11.5-14.5); Red Blood Cell (RBC) Count 4.89 mill/uL (4.20-5.40); White Blood Cell (WBC) Count 14.3 thou/uL (4.8-10.8)
[2022-04-05 07:23] LABS: Anion Gap 18 mmol/L (10-20); BUN (Urea Nitrogen) 43 mg/dL (9.8-20.1); Calc. Creatinine Clearance 40 mL/min (70-130); Calcium 8.7 mg/dL (7.8-10.44); Carbon Dioxide 18 mmol/L (23-31); Chloride 109 mmol/L (98-107); Estimated GFR 23; Glucose 187 mg/dL (80-115); Potassium 4.4 mmol/L (3.5-5.1); Sodium 141 mmol/L (136-145)
[2022-04-05] MEDS: Amlodipine 5 MG TAB PO SCH (08:33)
[2022-04-05] MEDS: Heparin 5,000 UNITS/ML VIAL SC SCH ×3 (08:34→19:51)
[2022-04-05] MEDS: cloNIDine 0.1 MG TAB PO SCH ×2 (09:54→19:51)
[2022-04-05] MEDS: HumaLOG 300 UNITS/3 ML VIAL SC PRN ×3 (11:10→22:17)
[2022-04-05] MEDS: Famotidine 20 MG TAB PO SCH (19:51)
[2022-04-05] MEDS: Acetaminophen 325 MG TAB PO PRN (19:56)
[2022-04-06] MEDS: Acetaminophen 325 MG TAB PO PRN (02:37)
[2022-04-06 05:25] LABS: Anion Gap 16 mmol/L (10-20); BUN (Urea Nitrogen) 36 mg/dL (9.8-20.1); Calc. Creatinine Clearance 58 mL/min (70-130); Calcium 8.6 mg/dL (7.8-10.44); Carbon Dioxide 19 mmol/L (23-31); Chloride 109 mmol/L (98-107); Estimated GFR 35; Glucose 245 mg/dL (80-115); Potassium 4.7 mmol/L (3.5-5.1); Sodium 139 mmol/L (136-145)
[2022-04-06] MEDS: HumaLOG 300 UNITS/3 ML VIAL SC PRN ×4 (05:33→23:58)
[2022-04-06] MEDS: methylPREDNISolone Sod Succ 40 MG VIAL IVP SCH (05:43)
[2022-04-06] MEDS: Amlodipine 5 MG TAB PO SCH (09:30)
[2022-04-06] MEDS: predniSONE 20 MG TAB PO SCH (09:30)
[2022-04-06] MEDS: cloNIDine 0.1 MG TAB PO SCH ×2 (09:30→21:03)
[2022-04-06] MEDS: Heparin 5,000 UNITS/ML VIAL SC SCH ×3 (09:31→21:05)
[2022-04-06] MEDS: Sodium Chloride 0.9% 1,000 ML IV SCH (09:31)
[2022-04-06] MEDS: Famotidine 20 MG TAB PO SCH (21:03)
[2022-04-07] MEDS: Sodium Chloride 0.9% 1,000 ML IV SCH ×2 (01:29→09:35)
[2022-04-07 05:02] LABS: #Lymphocytes 1.5 thou/uL (1.20-3.40); #Monocytes 0.9 thou/uL (0.11-0.59); #Neutrophils 8.2 thou/uL (1.40-6.50); %Basophils 0.1 % (0.0-1.0); %Eosinophils 0.3 % (0.0-10.0); %Lymphocytes 14.4 % (21.0-51.0); %Monocytes 8.4 % (0.0-10.0); %Neutrophils 76.7 % (42.0-75.0); Hemoglobin 12.7 g/dL (12.0-16.0); Mean Corpuscular HGB CONC 31.8 g/dL (32.0-36.0); Mean Corpuscular Hemoglobin 29.2 pg (27.0-31.0); Mean Corpuscular Volume 91.9 fL (78.0-98.0); Mean Platelet Volume 8.2 fL (7.4-10.4); Platelet Count 212 thou/uL (130-400); RBC Distribution Width 12.4 % (11.5-14.5); Red Blood Cell (RBC) Count 4.34 mill/uL (4.20-5.40); White Blood Cell (WBC) Count 10.7 thou/uL (4.8-10.8)
[2022-04-07 05:25] LABS: Anion Gap 13 mmol/L (10-20); BUN (Urea Nitrogen) 31 mg/dL (9.8-20.1); Calc. Creatinine Clearance 76 mL/min (70-130); Calcium 8.6 mg/dL (7.8-10.44); Carbon Dioxide 22 mmol/L (23-31); Chloride 109 mmol/L (98-107); Estimated GFR 49; Glucose 211 mg/dL (80-115); Potassium 4.2 mmol/L (3.5-5.1); Sodium 140 mmol/L (136-145)
[2022-04-07] MEDS: HumaLOG 300 UNITS/3 ML VIAL SC PRN ×2 (06:46→16:54)
[2022-04-07] MEDS: cloNIDine 0.1 MG TAB PO SCH ×2 (09:36→20:54)
[2022-04-07] MEDS: Acetaminophen 325 MG TAB PO PRN (09:36)
[2022-04-07] MEDS: predniSONE 20 MG TAB PO SCH (09:36)
[2022-04-07] MEDS: Heparin 5,000 UNITS/ML VIAL SC SCH ×3 (09:37→20:54)
[2022-04-07] MEDS: Amlodipine 5 MG TAB PO SCH (09:37)
[2022-04-07 15:08] LABS: SARS-CoV-2 NAA Rapid Test Not Detected (NotDetected)
[2022-04-07] MEDS: Famotidine 20 MG TAB PO SCH (20:54)
[2022-04-07] MEDS: Doxycycline 100 MG CAP PO SCH (20:54)
[2022-04-08] MEDS: Sodium Chloride 0.9% 1,000 ML IV SCH (05:39)
[2022-04-08 05:47] LABS: Anion Gap 15 mmol/L (10-20); BUN (Urea Nitrogen) 26 mg/dL (9.8-20.1); Calc. Creatinine Clearance 90 mL/min (70-130); Calcium 8.3 mg/dL (7.8-10.44); Carbon Dioxide 20 mmol/L (23-31); Chloride 109 mmol/L (98-107); Estimated GFR 60; Glucose 172 mg/dL (80-115); Sodium 140 mmol/L (136-145)
[2022-04-08] MEDS: cloNIDine 0.1 MG TAB PO SCH (08:16)
[2022-04-08] MEDS: predniSONE 20 MG TAB PO SCH (08:16)
[2022-04-08] MEDS: Heparin 5,000 UNITS/ML VIAL SC SCH (08:16)
[2022-04-08] MEDS: Amlodipine 5 MG TAB PO SCH (08:16)
[2022-04-08] MEDS: Doxycycline 100 MG CAP PO SCH (08:16)
[2022-04-08 12:19] VITALS: BP 168/72; TEMP 98
== END 2022-04-08 14:20 | disposition home or self-care (01) | DRG 191 ==
LOC: ERS 08:04 → 2SW 13:34 → OBSVTOIN 04-04 11:35
PROVIDERS: ADMIT Internal Medicine; ATTEND Internal Medicine
DX: J44.1 Chronic obstructive pulmonary disease with (acute) exacerbation (principal); I50.32 Chronic diastolic (congestive) heart failure; N17.9 Acute kidney failure, unspecified; Z68.42 Body mass index [BMI] 45.0-49.9, adult; Z20.822 Contact with and (suspected) exposure to COVID-19; Z96.659 Presence of unspecified artificial knee joint; R07.89 Other chest pain; E66.01 Morbid (severe) obesity due to excess calories; I11.0 Hypertensive heart disease with heart failure; F12.10 Cannabis abuse, uncomplicated; Z79.899 Other long term (current) drug therapy; Z79.84 Long term (current) use of oral hypoglycemic drugs; Z90.49 Acquired absence of other specified parts of digestive tract; Z98.890 Other specified postprocedural states; Z87.891 Personal history of nicotine dependence; Z98.42 Cataract extraction status, left eye; Z98.41 Cataract extraction status, right eye
CPT/HCPCS: 36415; 36416; 71045; 76770; 78451; 80048; 80053; 81003; 82570; 83690; 83880; 84300; 84443; 84484; 85025; 85379; 87081; 87430; 93005; 93306; 93970; 94640; 96372; 96375; 96376; A9540; G0378; J0360; J1644; J1815; J2920; J2930; J7050; J7120; J7512; J7620; U0003; U0005

== ENCOUNTER 2022-05-28 19:27 | Inpatient (IN) | payer OTHER, MEDICAID ==
[2022-05-28] MEDS ORDERED: niCARdipine 25 MG/10 ML VIAL ONE (20:05)
[2022-05-28 20:19] LABS: Hemoglobin 15.1 g/dL (12.0-16.0); Mean Corpuscular HGB CONC 32.4 g/dL (32.0-36.0); Mean Corpuscular Hemoglobin 29.3 pg (27.0-31.0); Mean Corpuscular Volume 90.4 fL (78.0-98.0); Mean Platelet Volume 8.1 fL (7.4-10.4); Platelet Count 301 thou/uL (130-400); RBC Distribution Width 13.1 % (11.5-14.5); Red Blood Cell (RBC) Count 5.16 mill/uL (4.20-5.40); White Blood Cell (WBC) Count 19.8 thou/uL (4.8-10.8)
[2022-05-28] MEDS ORDERED: Lorazepam 2 MG/ML VIAL ONE (20:24)
[2022-05-28] MEDS ORDERED: Acetaminophen 500 MG TAB ONE (20:24)
[2022-05-28 20:34] LABS: ALT (SGPT) 11 U/L (8-55); AST (SGOT) 16 U/L (5-34); Albumin 4.3 g/dL (3.4-4.8); Alkaline Phosphatase 103 U/L (40-110); Anion Gap 16 mmol/L (10-20); BUN (Urea Nitrogen) 22 mg/dL (9.8-20.1); Calc. Creatinine Clearance 0 mL/min (70-130); Calcium 9.5 mg/dL (7.8-10.44); Carbon Dioxide 23 mmol/L (23-31); Chloride 100 mmol/L (98-107); Estimated GFR 54; Globulin 3.3 g/dL (2.4-3.5); Glucose 190 mg/dL (80-115); Potassium 4.4 mmol/L (3.5-5.1); Protein, Total 7.6 g/dL (5.8-8.1); Sodium 135 mmol/L (136-145)
[2022-05-28 20:35] LABS: Band 4 % (5-11); Lymphocytes 5 % (21-51); MDiff Complete? YES; Monocytes 2 % (0-10); Neutrophil 86 % (42-75); Platelet Morphology Comment Appears Adequate; RBC Morphology Normal; Reactive Lymphocytes 3 % (0-10)
[2022-05-28] MEDS ORDERED: Cefepime 2 GM VIAL ONE ×2 (20:35→20:37)
[2022-05-28] MEDS ORDERED: Vancomycin 1 GM/200 ML BAG ONE ×3 (20:35→21:20)
[2022-05-28] MEDS ORDERED: Ondansetron ODT 4 MG TAB PO PRN (21:35)
[2022-05-28] MEDS ORDERED: Acetaminophen 325 MG TAB PO PRN (21:35)
[2022-05-28] MEDS ORDERED: Ondansetron PF 4 MG/2 ML Vial IVP PRN (21:35)
[2022-05-28] MEDS ORDERED: Dextrose 50% Abboject 50 ML SYRINGE SLOW IVP PRN (21:35)
[2022-05-28] MEDS ORDERED: HumaLOG 300 UNITS/3 ML VIAL SC PRN ×2 (21:35)
[2022-05-28] MEDS ORDERED: Dextrose 5% in Water 1,000 ML IV PRN (21:35)
[2022-05-28] MEDS ORDERED: Levalbuterol HCl 0.63 MG/3 ML NEB NEB PRN (21:56)
[2022-05-28] MEDS ORDERED: Communication Order-Pharmacy FS ONE (23:01)
[2022-05-28] MEDS ORDERED: Enoxaparin Sodium 120 MG/0.8 ML SYRINGE SC SCH (23:15)
[2022-05-28 23:16] LABS: Magnesium 1.9 mg/dL (1.6-2.6); Phosphorus 3.4 mg/dL (2.3-4.7)
[2022-05-28] MEDS: Sodium Chloride 0.9% 1,000 ML IV SCH (23:44)
[2022-05-28] MEDS ORDERED: Vancomycin 1 GM in Premix Bag 1 BAG IVPB SCH (23:59)
[2022-05-29 00:29] LABS: Troponin I 0.011 ng/mL (< 0.028)
[2022-05-29 02:47] LABS: Hemoglobin 12.5 g/dL (12.0-16.0); Mean Corpuscular HGB CONC 32.4 g/dL (32.0-36.0); Mean Corpuscular Volume 89.6 fL (78.0-98.0); Mean Platelet Volume 8.1 fL (7.4-10.4); Platelet Count 223 thou/uL (130-400); Red Blood Cell (RBC) Count 4.32 mill/uL (4.20-5.40); White Blood Cell (WBC) Count 27.6 thou/uL (4.8-10.8)
[2022-05-29 03:45] LABS: Anion Gap 13 mmol/L (10-20); BUN (Urea Nitrogen) 23 mg/dL (9.8-20.1); Calc. Creatinine Clearance 89 mL/min (70-130); Calcium 8.4 mg/dL (7.8-10.44); Carbon Dioxide 23 mmol/L (23-31); Chloride 104 mmol/L (98-107); Estimated GFR 59; Glucose 143 mg/dL (80-115); Potassium 3.9 mmol/L (3.5-5.1); Sodium 136 mmol/L (136-145)
[2022-05-29 03:45] LABS: SARS-CoV-2 NAA Rapid Test Not Detected (NotDetected)
[2022-05-29 04:02] LABS: Band 18 % (5-11); Lymphocytes 4 % (21-51); MDiff Complete? YES; Monocytes 6 % (0-10); Neutrophil 72 % (42-75)
[2022-05-29] MEDS: Mometasone 100 MCG/Formoterol 5 MCG 120 PUFF INHALER INH SCH ×2 (07:41→19:37)
[2022-05-29] MEDS ORDERED: FLU VACC QS2022-23(65YR UP)/PF 240 MCG/0.7 ML SYRINGE IM ONE (09:00)
[2022-05-29] MEDS ORDERED: Enoxaparin Sodium 120 MG/0.8 ML SYRINGE SC SCH (09:00)
[2022-05-29] MEDS: Cefepime 2 GM in Sodium Chloride 0.9% 100 ML IVPB SCH ×2 (09:52→21:10)
[2022-05-29] MEDS: Sodium Chloride 0.9% 1,000 ML IV SCH ×2 (09:53→21:14)
[2022-05-29] MEDS: oxyCODONE 5 MG TAB PO PRN (09:53)
[2022-05-29] MEDS ORDERED: NPH, Human Insulin Isophane 300 UNIT/3 ML VIAL SC SCH (12:15)
[2022-05-29] MEDS ORDERED: predniSONE 50 MG TAB PO SCH (12:30)
[2022-05-29 12:47] VITALS: BMI 49.9
[2022-05-29] MEDS ORDERED: Insulin NPH Human Isophane 100 UNIT/ML (10 ML VIAL) SC SCH (13:00)
[2022-05-29] MEDS: Acetaminophen 500 MG TAB PO SCH ×2 (15:18→21:10)
[2022-05-29] MEDS ORDERED: Acetaminophen 325 MG TAB PO PRN (20:23)
[2022-05-29] MEDS ORDERED: VANCOMYCIN 1.25 GM/250 ML BAG 1.25 GM in Premix Bag 1 BAG IVPB SCH (22:00)
[2022-05-30 04:46] LABS: #Lymphocytes 1.1 thou/uL (1.20-3.40); #Monocytes 0.4 thou/uL (0.11-0.59); #Neutrophils 18.2 thou/uL (1.40-6.50); %Eosinophils 0.1 % (0.0-10.0); %Lymphocytes 5.5 % (21.0-51.0); %Monocytes 1.8 % (0.0-10.0); %Neutrophils 92.5 % (42.0-75.0); Hemoglobin 12.3 g/dL (12.0-16.0); Mean Corpuscular HGB CONC 31.4 g/dL (32.0-36.0); Mean Corpuscular Volume 92.4 fl (78.0-98.0); Mean Platelet Volume 8.4 fL (7.4-10.4); Platelet Count 220 thou/uL (130-400); RBC Distribution Width 12.9 % (11.5-14.5); Red Blood Cell (RBC) Count 4.23 mill/uL (4.20-5.40); White Blood Cell (WBC) Count 19.7 thou/uL (4.8-10.8)
[2022-05-30 05:11] LABS: Anion Gap 12 mmol/L (10-20); BUN (Urea Nitrogen) 21 mg/dL (9.8-20.1); Calc. Creatinine Clearance 108 mL/min (70-130); Calcium 8.9 mg/dL (7.8-10.44); Carbon Dioxide 22 mmol/L (23-31); Chloride 105 mmol/L (98-107); Estimated GFR 75; Glucose 196 mg/dL (80-115); Potassium 3.9 mmol/L (3.5-5.1); Sodium 135 mmol/L (136-145)
[2022-05-30] MEDS ORDERED: predniSONE 50 MG TAB PO SCH (08:00)
[2022-05-30] MEDS: Acetaminophen 500 MG TAB PO SCH (08:51)
[2022-05-30] MEDS: oxyCODONE 5 MG TAB PO PRN (08:53)
[2022-05-30] MEDS: Sodium Chloride 0.9% 1,000 ML IV SCH (08:56)
[2022-05-30] MEDS: Cefepime 2 GM in Sodium Chloride 0.9% 100 ML IVPB SCH (08:56)
[2022-05-30] MEDS ORDERED: Insulin NPH Human Isophane 100 UNIT/ML (10 ML VIAL) SC SCH (09:00)
[2022-05-30] MEDS ORDERED: Enoxaparin Sodium 40 MG/0.4 ML SYRINGE SC SCH (09:00)
[2022-05-30] MEDS: Mometasone 100 MCG/Formoterol 5 MCG 120 PUFF INHALER INH SCH (10:45)
[2022-05-30 12:37] VITALS: TEMP 97.7
[2022-05-30 13:19] VITALS: BP 132/62
== END 2022-05-30 14:20 | disposition home or self-care (01) | DRG 871 ==
LOC: ERS 19:27 → 2NO 21:21
PROVIDERS: ADMIT Student in an Organized Health Care Education/Training Program; ATTEND Hospitalist
DX: A41.9 Sepsis, unspecified organism (principal); J18.9 Pneumonia, unspecified organism; L03.116 Cellulitis of left lower limb; J44.1 Chronic obstructive pulmonary disease with (acute) exacerbation; J44.0 Chronic obstructive pulmonary disease with (acute) lower respiratory infection; Z68.43 Body mass index [BMI] 50.0-59.9, adult; I10 Essential (primary) hypertension; E11.9 Type 2 diabetes mellitus without complications; I16.0 Hypertensive urgency; F17.210 Nicotine dependence, cigarettes, uncomplicated; E66.01 Morbid (severe) obesity due to excess calories; F12.10 Cannabis abuse, uncomplicated; Z20.822 Contact with and (suspected) exposure to COVID-19; Z90.49 Acquired absence of other specified parts of digestive tract; Z98.890 Other specified postprocedural states; Z79.51 Long term (current) use of inhaled steroids; Z79.899 Other long term (current) drug therapy
CPT/HCPCS: 36415; 36416; 71275; 80048; 80053; 83605; 83735; 83880; 84100; 84145; 84484; 85025; 85379; 87040; 93005; 94760; J0692; J1650; J1815; J2060; J3370; J3490; J7050; J7512; Q9967

== ENCOUNTER 2022-07-10 07:40 | Outpatient (CLI) | payer OTHER, MEDICAID ==
[2022-07-10] MEDS ORDERED: Iopamidol 370 76% 100 ML VIAL ONE (15:53)
== END 2022-07-10 07:41 | disposition home or self-care (01) ==
LOC: CT 07:40
PROVIDERS: ATTEND Internal Medicine Critical Care Medicine
DX: J16.8 Pneumonia due to other specified infectious organisms (principal)
CPT/HCPCS: 71260; 82565; Q9967